=== PATIENT | male | born 1960 | race African-American/Black ===

== ENCOUNTER 2018-02-24 10:20 | Inpatient (IN) | payer OTHER ==
[~2018-02-24] VITALS: Ht 182.9 cm; Wt 113.4 kg
[2018-02-24] MEDS ORDERED: Morphine Sulfate 4mg/ml Inj IVP ONE (10:30)
--- NOTE | 2018-02-24 10:59 | Emergency Room Report ---
History of Present Illness General Chief Complaint: Male Urogenital Problems Source: Patient, EMS Present Illness HPI 57-year-old male presents ED for evaluation. Patient brought in by EMS complaining of scrotal pain and 3 days. Patient states over the last 3 days his scrotum got progressively more swollen. Pain is 8 out of 10, throbbing, nonradiating. Denies dysuria. Denies discharge. Patient notes history of bilateral leg cellulitis. Denies fevers or chills. No other aggravating relieving factors. Denies any other associated symptoms Allergies: Coded Allergies: No Known Allergies (Unverified , 02/24/18) Patient History Past Medical History: DM, HTN, psych hx Past Surgical History: none Pertinent Family History: none Social History: Denies: smoking, alcohol use, drug use Immunizations: UTD Reviewed Nursing Documentation: PMH: Agreed; PSxH: Agreed Nursing Documentation-PMH Past Medical History: No History, Except For Hx Hypertension: Yes Hx Diabetes: Yes History Of Psychiatric Problem: Yes - schizophrenia, ptsd Review of Systems All Other Systems: negative except mentioned in HPI Physical Exam Vital Signs Date Time Temp Pulse Resp B/P (MAP) Pulse Ox O2 Delivery O2 Flow Rate FiO2 02/24/18 10:14 97.5 108 20 182/126 99 Room Air 97.5 Sp02 EP Interpretation: reviewed, normal General Appearance: no apparent distress, alert, GCS 15, non-toxic Head: normocephalic Eyes: bilateral eye normal inspection, bilateral eye PERRL ENT: normal ENT inspection Neck: normal inspection Respiratory: chest non-tender, lungs clear, normal breath sounds, speaking full sentences Cardiovascular #1: regular rate, rhythm, no edema Gastrointestinal: normal bowel sounds, non tender, soft, non-distended, no guarding, no rebound Genitourinary: no CVA tenderness, other - scrotum swollen, erythematous, indurated Musculoskeletal: normal inspection Neurologic: alert, oriented x3, responsive, motor strength/tone normal, sensory intact, speech normal Psychiatric: normal inspection Skin: normal inspection Lymphatic: normal inspection Medical Decision Making Diagnostic Impression: Primary Impression: Cellulitis of scrotum Additional Impression: Uncontrolled hypertension ER Course Hospital Course 57-year-old male presents to ED with scrotal swelling and pain Differential diagnosis includes- torsion, hydrocele, fourniers gangrene, cellultitis Clinical course Patient placed on stretcher. After initial history and physical I ordered labs , IV fluids, pain medications and CT scan and US Labs - noted leukocytosis, Cr 1.9, lactate ok, Scrotal US - thickened scrotum wall, no fluid, no free air, testes within normal limits CT scan shows extensive subcutaneous edema of the scrotum, lower abdomen and bilateral thighs Suspicion for acute process such as fourniers, abscess is low. IV hydration given. Given Zosyn, vancomycin. Blood pressure elevated, tachycardic. States he is not compliant with his blood pressure meds. Does not know the name of his blood pressure meds. Given hydralazine here Patient evaluated by surgery, urology at bedside. Agreed that no acute surgical intervention required at this time Because of insurance patient will be transferred I feel this is a highly complex case requiring extensive working including EKG/ Rhythm strip, Xray/CT/US, Blood/urine lab work, repeat exams while in ED, and administration of strong opiates/narcotics for pain control, admission to hospital or close patient follow up. Diagnosis - cellulitis of scrotum, uncontrolled hypertension transferred in serious condition Labs Test 02/24/18 10:50 White Blood Count 14.1 K/UL (4.8-10.8) Red Blood Count 5.37 M/UL (4.70-6.10) Hemoglobin 14.7 G/DL (14.2-18.0) Hematocrit 47.7 % (42.0-52.0) Mean Corpuscular Volume 89 FL (80-99) Mean Corpuscular Hemoglobin 27.4 PG (27.0-31.0) Mean Corpuscular Hemoglobin Concent 30.8 G/DL (32.0-36.0) Red Cell Distribution Width 14.5 % (11.6-14.8) Platelet Count 310 K/UL (150-450) Mean Platelet Volume 6.3 FL (6.5-10.1) Neutrophils (%) (Auto) 77.4 % (45.0-75.0) Lymphocytes (%) (Auto) 11.8 % (20.0-45.0) Monocytes (%) (Auto) 8.9 % (1.0-10.0) Eosinophils (%) (Auto) 1.2 % (0.0-3.0) Basophils (%) (Auto) 0.8 % (0.0-2.0) Prothrombin Time 12.1 SEC (9.30-11.50) Prothromb Time International Ratio 1.2 (0.9-1.1) Activated Partial Thromboplast Time 29 SEC (23-33) Sodium Level 140 MMOL/L (136-145) Potassium Level 3.7 MMOL/L (3.5-5.1) Chloride Level 101 MMOL/L (98-107) Carbon Dioxide Level 33 MMOL/L (21-32) Anion Gap 6 mmol/L (5-15) Blood Urea Nitrogen 23 mg/dL (7-18) Creatinine 1.9 MG/DL (0.55-1.30) Estimat Glomerular Filtration Rate 44.8 mL/min (>60) Glucose Level 133 MG/DL (74-106) Lactic Acid Level 1.10 mmol/L (0.66-2.22) Calcium Level 8.3 MG/DL (8.5-10.1) Total Bilirubin 0.8 MG/DL (0.2-1.0) Aspartate Amino Transf (AST/SGOT) 25 U/L (15-37) Alanine Aminotransferase (ALT/SGPT) 24 U/L (12-78) Alkaline Phosphatase 123 U/L (46-116) Total Protein 6.8 G/DL (6.4-8.2) Albumin 2.5 G/DL (3.4-5.0) Globulin 4.3 g/dL Albumin/Globulin Ratio 0.6 (1.0-2.7) CT/MRI/US Diagnostic Results CT/MRI/US Diagnostic Results #1: Imaging Test Ordered: CT A/P Impression massive scrotal wall edema. edema of abdominal wall subcutaneous fat, bilateral upper thigh subcutaneous fat CT/MRI/US Diagnostic Results #2: Imaging Test Ordered: Scrotal US Impression thickened scrotum. no free air. no fluid. testes within normal limits. good flow Last Vital Signs Date Time Temp Pulse Resp B/P (MAP) Pulse Ox O2 Delivery O2 Flow Rate FiO2 02/24/18 10:14 97.5 108 20 182/126 99 Room Air 97.5 Status: improved Disposition: XFER SHT-TRM HOSP Condition: Serious SHIMON SALEH M.D. Feb 24, 2018 10:59
[2018-02-24 11:08] LABS: BASOPHILS % (AUTO) 0.8 % (0.0-2.0); EOSINOPHILS % (AUTO) 1.2 % (0.0-3.0); HEMATOCRIT 47.7 % (42.0-52.0); HEMOGLOBIN 14.7 G/DL (14.2-18.0); LYMPHOCYTES % (AUTO) 11.8 % (20.0-45.0); MEAN CORPUSCULAR VOLUME 89 FL (80-99); MONOCYTES % (AUTO) 8.9 % (1.0-10.0); NEUTROPHILS % (AUTO) 77.4 % (45.0-75.0); PLATELET COUNT 310 K/UL (150-450); RED BLOOD COUNT 5.37 M/UL (4.70-6.10); RED CELL DISTRIBUTION WIDTH 14.5 % (11.6-14.8); WHITE BLOOD COUNT 14.1 K/UL (4.8-10.8)
[2018-02-24 11:15] LABS: INR 1.2 (0.9-1.1)
[2018-02-24 11:20] LABS: ANION GAP 6 mmol/L (5-15); BLOOD UREA NITROGEN 23 mg/dL (7-18); CALCIUM 8.3 MG/DL (8.5-10.1); CARBON DIOXIDE 33 MMOL/L (21-32); CHLORIDE 101 MMOL/L (98-107); CREATININE 1.9 MG/DL (0.55-1.30); POTASSIUM 3.7 MMOL/L (3.5-5.1); SODIUM 140 MMOL/L (136-145)
[2018-02-24 11:23] LABS: ALANINE AMINOTRANSFERASE 24 U/L (12-78); ALBUMIN 2.5 G/DL (3.4-5.0); ALBUMIN/GLOBULIN RATIO 0.6 (1.0-2.7); ALKALINE PHOSPHATASE 123 U/L (46-116); ASPARTATE AMINO TRANSFERASE 25 U/L (15-37); BILIRUBIN,TOTAL 0.8 MG/DL (0.2-1.0)
[2018-02-24 12:00] VITALS: BP 151/110
[2018-02-24] MEDS ORDERED: Zosyn 3.375gm inj ONE (12:14)
[2018-02-24] MEDS ORDERED: Piperacillin/Tazobactam 3.375 GM in NS 110 ML IVPB ONE ×2 (12:15→20:00)
[2018-02-24] MEDS ORDERED: Vancomycin 1.5gm/D5W 250ml 250 ML IVPB ONE (12:15)
[2018-02-24] MEDS ORDERED: HYDROmorphone 1mg/ml Carpuject IVP ONE (12:45)
--- NOTE | 2018-02-24 12:46 | Consultation ---
History of Present Illness General Date patient seen: Feb 24, 2018 Time patient seen: 12:42 Chief Complaint: Male Urogenital Problems Referring physician: Jennifer Reason for Consultation: scrotal swelling Present Illness HPI 57 yo male, pre-diabetic, hypertensive, normally [facility] with 3 days scrotal swelling. It is tender as well. Denies any other real symptoms of dysuria, hematuria, or anything else. Unsure of patient's reliability as a historian. Allergies: Coded Allergies: No Known Allergies (Unverified , 02/24/18) Patient History History Provided By: Patient Healthcare decision maker Resuscitation status Advanced Directive on File Review of Systems All Other Systems: negative except mentioned in HPI Physical Exam General Appearance: mild distress Neck: supple Abdomen: soft Genitourinary/Rectal: other - enlarged scrotum bilaterally, no crepitus, mild TTP, no fluctuance or obvious fluid collection Neurologic: alert, oriented x 3 Last 24 Hour Vital Signs Date Time Temp Pulse Resp B/P (MAP) Pulse Ox O2 Delivery O2 Flow Rate FiO2 02/24/18 12:25 97.5 02/24/18 11:14 97.5 02/24/18 10:14 97.5 108 20 182/126 99 Room Air 97.5 Laboratory Tests Test 02/24/18 10:50 White Blood Count 14.1 K/UL (4.8-10.8) H Red Blood Count 5.37 M/UL (4.70-6.10) Hemoglobin 14.7 G/DL (14.2-18.0) Hematocrit 47.7 % (42.0-52.0) Mean Corpuscular Volume 89 FL (80-99) Mean Corpuscular Hemoglobin 27.4 PG (27.0-31.0) Mean Corpuscular Hemoglobin Concent 30.8 G/DL (32.0-36.0) L Red Cell Distribution Width 14.5 % (11.6-14.8) Platelet Count 310 K/UL (150-450) Mean Platelet Volume 6.3 FL (6.5-10.1) L Neutrophils (%) (Auto) 77.4 % (45.0-75.0) H Lymphocytes (%) (Auto) 11.8 % (20.0-45.0) L Monocytes (%) (Auto) 8.9 % (1.0-10.0) Eosinophils (%) (Auto) 1.2 % (0.0-3.0) Basophils (%) (Auto) 0.8 % (0.0-2.0) Prothrombin Time 12.1 SEC (9.30-11.50) H Prothromb Time International Ratio 1.2 (0.9-1.1) H Activated Partial Thromboplast Time 29 SEC (23-33) Sodium Level 140 MMOL/L (136-145) Potassium Level 3.7 MMOL/L (3.5-5.1) Chloride Level 101 MMOL/L (98-107) Carbon Dioxide Level 33 MMOL/L (21-32) H Anion Gap 6 mmol/L (5-15) Blood Urea Nitrogen 23 mg/dL (7-18) H Creatinine 1.9 MG/DL (0.55-1.30) H Estimat Glomerular Filtration Rate 44.8 mL/min (>60) Glucose Level 133 MG/DL (74-106) H Lactic Acid Level 1.10 mmol/L (0.66-2.22) Calcium Level 8.3 MG/DL (8.5-10.1) L Total Bilirubin 0.8 MG/DL (0.2-1.0) Aspartate Amino Transf (AST/SGOT) 25 U/L (15-37) Alanine Aminotransferase (ALT/SGPT) 24 U/L (12-78) Alkaline Phosphatase 123 U/L (46-116) H Total Protein 6.8 G/DL (6.4-8.2) Albumin 2.5 G/DL (3.4-5.0) L Globulin 4.3 g/dL Albumin/Globulin Ratio 0.6 (1.0-2.7) L Height (Feet): 6 Weight (Pounds): 250 Medications Current Medications Medications (Trade) Dose Ordered Sig/Igro Route PRN Reason Start Time Stop Time Status Last Admin Dose Admin Piperacillin Sod/ Tazobactam Sod 3.375 gm/Sodium Chloride 110 ml @ 220 mls/hr ONCE ONCE IVPB 02/24/18 12:15 02/24/18 12:44 02/24/18 12:17 Sodium Chloride 1,000 ml @ 999 mls/hr Q1H1M ONCE IV 02/24/18 12:15 02/24/18 13:15 Vancomycin HCl/ Dextrose 250 ml @ 125 mls/hr ONCE ONCE IVPB 02/24/18 12:15 02/24/18 14:14 Objective Narrative ultrasound: scrotal wall thickening CT: prelim read, skin thickening of scrotal wall, no defined fluid collection, no subcutaneous gas Assessment/Plan Status: stable Assessment/Plan 57 yo male with what seems to be a severe localized cellulitis. Doubt it has just occured over 3 days, but thankfully imaging shows no abscess or involvement of fascial planes. Will await radiology read as well but do not feel he warrants any aggressive surgical drainage at this time. Will monitor. Recommend IV abx treatment for cellulitis. 1. IV abx 2. no intervention. Ulysses Alvarez M.D. Feb 24, 2018 12:46
--- NOTE | 2018-02-24 12:58 | Diagnostic Imaging Report ---
Indication: Abdominal pain Technique: Spiral acquisitions obtained through the abdomen and pelvis. No oral contrast utilized, per emergency room physician request No IV contrast utilized, due to history of renal insufficiency.. Multiplanar reconstructions were generated. Total dose length product 3026.35 mGycm. CTDIvol(s) 41.87 mGy. Dose reduction achieved using automated exposure control Comparison: None Findings: There is generalized edema of the abdominal wall subcutaneous fat. This extends into the chest bansal bilaterally There is also mild edema of the subcutaneous fat of the bilateral upper thighs. There is a massive edema of the scrotal wall. Recent ultrasound indicates that this is not a hydrocele but rather represents scrotal wall thickening Lack of enteric contrast limits assessment of the GI tract. No evidence of diverticulosis or diverticulitis. The appendix is normal. One or more equivocally mildly dilated and thick-walled small bowel loops are seen involving the proximal jejunum. The remainder of the small bowel is normal in caliber. No free or loculated intraperitoneal gas. There is trace intraperitoneal fluid over the right side of the liver. There is a small fat-containing umbilical hernia. Lack of IV contrast limits assessment of the solid organs. The gallbladder demonstrates questionably a small gallbladder neck stone. It is not distended or thick-walled. The liver, bile ducts, pancreas, spleen, adrenals are grossly unremarkable. The kidneys demonstrate perinephric fat stranding bilaterally. No gross mass or cyst. No renal or ureteral calculi, hydronephrosis, or hydroureter demonstrated. Prominent but not frankly enlarged retroperitoneal nodes are demonstrated. Unremarkable prostate, seminal vesicles, and bladder. Linear and groundglass opacities of both lung bases likely represent atelectatic changes. The heart is enlarged. The bones are unremarkable. Impression: Massive scrotal wall edema, appears nonspecific as regards etiology Less extensive edema of the abdominal wall subcutaneous fat and bilateral upper thigh subcutaneous fat Limited assessment of the GI tract, given lack of enteric contrast administration Equivocally minimally dilated and thick walled proximal small bowel loops, of doubtful significance but could represent a mild focal ileus Trace free fluid seen adjacent to the liver Bilateral nonspecific perirenal fat stranding Very questionable cholelithiasis Cardiomegaly Incidental findings small fat-containing umbilical hernia, bilateral basilar atelectatic changes The CT scanner at [facility] is accredited by the [employer] and the scans are performed using protocols designed to limit radiation exposure to as low as reasonably achievable to attain images of sufficient resolution adequate for diagnostic evaluation.
[2018-02-24 13:15] VITALS: BP 151/110
[2018-02-24] MEDS ORDERED: UNOBMED (13:15)
[2018-02-24] MEDS ORDERED: RISPERDAL0.25 MG ORAL (13:15)
--- NOTE | 2018-02-24 14:02 | Diagnostic Imaging Report ---
Indications: Scrotal swelling and pain x3 days Technique: Grayscale and duplex images of the scrotum Comparison: none Findings: The scrotal wall is massively thickened. There is also hypervascular. No discrete scrotal wall collections are demonstrated The right testicle measures 5.3cm in length. It demonstrates normal echogenicity. Normal Doppler flow. There is a 4 mm cyst in the right epididymal head. There is a trace hydrocele. The left testicle measures is 5.1 cm in length. It demonstrates normal echogenicity and normal Doppler flow. Epididymal head and body appears somewhat enlarged. There is a trace left hydrocele Impression: Massive scrotal wall thickening. This may represent edema hemodynamic origin, versus cellulitis. No evidence of scrotal wall abscess Large left epididymal head. This could indicate epididymitis Trace bilateral hydroceles Incidental finding of 4 mm cyst in the right epididymal head, most likely a spermatocele or an epididymal cyst
--- NOTE | 2018-02-24 15:26 | Consultation ---
History of Present Illness General Date patient seen: Feb 24, 2018 Time patient seen: 15:12 Chief Complaint: Male Urogenital Problems Referring physician: Jennifer Reason for Consultation: scrotal swelling Present Illness HPI 57 y /o M with hx of pre-diabetes, schizophrenia, PTSD, [facility], HTN, b/l leg cellulitis presents to ED on 02/24 with 3 days of scrotal swelling and 8/10 pain. Grazyna dysuria, hematuria, discharge, f/c. sexually active with 2 differnet partners- endorse 100% condom use of note , admitted ~2 weeks ago to [facility] for 1 week for leg cellultitis- sent home off abx Allergies: Coded Allergies: No Known Allergies (Unverified , 02/24/18) Medication History Scheduled Risperidone* (Risperdal*), Unknown Dose ORAL DAILY, (Reported) Miscellaneous Medications Unable to Obtain Medications (Unable To Obtain Meds), (Reported) Patient History Healthcare decision maker Resuscitation status Advanced Directive on File Patient History Narrative Pmhx: as above Shx: Denies: smoking, alcohol use, drug usef Fhx: non contributory Review of Systems All Other Systems: negative except mentioned in HPI Physical Exam Physical Exam Narrative General Appearance: no apparent distress, alert Head: normocephalic Eyes: bilateral eye normal inspection, bilateral eye PERRL ENT: normal ENT inspection Neck: normal inspection Respiratory: chest non-tender, lungs clear, normal breath sounds, speaking full sentences Cardiovascular regular rate, rhythm, no edema Gastrointestinal: normal bowel sounds, non tender, soft, non-distended, no guarding, no rebound Genitourinary: no CVA tenderness, other - scrotum swollen, erythematous, indurated Musculoskeletal: normal inspection Skin: normal inspection Last 24 Hour Vital Signs Date Time Temp Pulse Resp B/P (MAP) Pulse Ox O2 Delivery O2 Flow Rate FiO2 02/24/18 13:15 99 17 151/110 99 Room Air 02/24/18 12:49 164/111 02/24/18 12:49 97.5 02/24/18 12:25 97.5 02/24/18 12:00 106 24 151/110 97 Room Air 02/24/18 11:14 97.5 02/24/18 10:14 97.5 108 20 182/126 99 Room Air 97.5 Laboratory Tests Test 02/24/18 10:50 White Blood Count 14.1 K/UL (4.8-10.8) H Red Blood Count 5.37 M/UL (4.70-6.10) Hemoglobin 14.7 G/DL (14.2-18.0) Hematocrit 47.7 % (42.0-52.0) Mean Corpuscular Volume 89 FL (80-99) Mean Corpuscular Hemoglobin 27.4 PG (27.0-31.0) Mean Corpuscular Hemoglobin Concent 30.8 G/DL (32.0-36.0) L Red Cell Distribution Width 14.5 % (11.6-14.8) Platelet Count 310 K/UL (150-450) Mean Platelet Volume 6.3 FL (6.5-10.1) L Neutrophils (%) (Auto) 77.4 % (45.0-75.0) H Lymphocytes (%) (Auto) 11.8 % (20.0-45.0) L Monocytes (%) (Auto) 8.9 % (1.0-10.0) Eosinophils (%) (Auto) 1.2 % (0.0-3.0) Basophils (%) (Auto) 0.8 % (0.0-2.0) Prothrombin Time 12.1 SEC (9.30-11.50) H Prothromb Time International Ratio 1.2 (0.9-1.1) H Activated Partial Thromboplast Time 29 SEC (23-33) Sodium Level 140 MMOL/L (136-145) Potassium Level 3.7 MMOL/L (3.5-5.1) Chloride Level 101 MMOL/L (98-107) Carbon Dioxide Level 33 MMOL/L (21-32) H Anion Gap 6 mmol/L (5-15) Blood Urea Nitrogen 23 mg/dL (7-18) H Creatinine 1.9 MG/DL (0.55-1.30) H Estimat Glomerular Filtration Rate 44.8 mL/min (>60) Glucose Level 133 MG/DL (74-106) H Lactic Acid Level 1.10 mmol/L (0.66-2.22) Calcium Level 8.3 MG/DL (8.5-10.1) L Total Bilirubin 0.8 MG/DL (0.2-1.0) Aspartate Amino Transf (AST/SGOT) 25 U/L (15-37) Alanine Aminotransferase (ALT/SGPT) 24 U/L (12-78) Alkaline Phosphatase 123 U/L (46-116) H Total Protein 6.8 G/DL (6.4-8.2) Albumin 2.5 G/DL (3.4-5.0) L Globulin 4.3 g/dL Albumin/Globulin Ratio 0.6 (1.0-2.7) L Height (Feet): 6 Weight (Pounds): 250 Assessment/Plan Assessment/Plan Abx: IV Vanco/Zosyn 02/24- Assessment: Testicular swelling-> testicular cellulitis and epididymitis; no signs suggestive of Richard gangrene at this moment -Testicular US: Massive scrotal wall thickening. This may represent edema hemodynamic origin, versus cellulitis. No evidence of scrotal wall abscess. Large left epididymal head. This could indicate epididymitis. Trace bilateral hydroceles. Incidental finding of 4 mm cyst in the right epididymal head, most likely a spermatocele or an epididymal cyst -CT abd/p: Massive scrotal wall edema, appears nonspecific as regards etiology. Less extensive edema of the abdominal wall subcutaneous fat and bilateral upper thigh subcutaneous fat. Limited assessment of the GI tract, given lack of enteric contrast administration. Equivocally minimally dilated and thick walled proximal small bowel loops, of doubtful significance but could represent a mild focal ileus. Trace free fluid seen adjacent to the liver. Bilateral nonspecific perirenal fat stranding. Very questionable cholelithiasis. Cardiomegaly ncidental findings small fat-containing umbilical hernia, bilateral basilar atelectatic changes -u/a p Leukocytosis -afebrile pre-diabetes schizophrenia PTSD HTN hx b/l leg cellulitis Plan: -Continue empiric IV Vanco and Zosyn -f/u u/a w/ reflex -HIV ab, GC/CL urine,RPR -f/u cx -Monitor CBC, BMP, temperatures Thank you for this consultation. Will continue to follow along with you. Discussed with RN, Leela Christian M.D. Feb 24, 2018 15:25
[2018-02-24 15:27] LABS: APPEARANCE,URINE CLEAR; BILIRUBIN, URINE NEGATIVE (NEGATIVE); GLUCOSE, URINE (UA) NEGATIVE (NEGATIVE); KETONES,URINE NEGATIVE (NEGATIVE); LEUKOCYTE ESTERASE ,URINE 1+ (NEGATIVE); NITRITE,URINE NEGATIVE (NEGATIVE); PH,URINE 5 (4.5-8.0); PROTEIN,URINE 4+ (NEGATIVE); UROBILINOGEN,URINE 4 MG/DL (0.0-1.0)
[2018-02-24 15:28] VITALS: BP 138/84
[2018-02-24 15:31] LABS: COLOR,URINE YELLOW
[2018-02-24 16:23] VITALS: BP 138/84
[2018-02-24] MEDS ORDERED: cloNIDine 0.2mg Tab ORAL PRN (16:30)
[2018-02-24] MEDS ORDERED: HYDROcodone/Acetamin 10/325 tab ORAL PRN (16:30)
--- NOTE | 2018-02-24 18:04 | Discharge Summary ---
Discharge Summary Hospital Course Date of Admission Feb 24, 2018 at 15:07 Date of Discharge Feb 24, 2018 at 16:58 Admitting Diagnosis scorotal cellulitis HPI Jesus Mcclendon is a 57 year old male who was admitted on Feb 24, 2018 at 15:07 for Scrotal Cellulitis Hospital Course [id number] Discharge Discharge Disposition Patient was discharged to Acute Care Facility(02) Ashley Jensen NP Feb 24, 2018 18:04
[2018-02-24] MEDS ORDERED: Ampicillin/Sulbactam Sod 1.5 GM in NS 55 ML IVPB SCH (21:00)
[2018-02-24] MEDS ORDERED: Heparin 5000 units/ml inj SUBQ SCH (21:00)
[2018-02-24] MEDS ORDERED: Metoprolol 25mg tab ORAL SCH (21:00)
--- NOTE | 2018-02-25 08:00 | Discharge Summary 2 SIG ---
DATE OF ADMISSION: 02/24/2018 DATE OF DISCHARGE: 02/24/2018 BRIEF HOSPITAL COURSE: The patient is a 57-year-old male, who presented to ED, brought in by EMS complaining of scrotal pain for three days. This has progressively gotten more painful and swollen. The pain is 8/10, throbbing, and nonradiating. He denied dysuria. Denied discharge. He has history of bilateral leg cellulitis. He denied fever or chills. He has past medical history significant for diabetes mellitus and hypertension. On evaluation at ED, WBC was elevated to 14, creatinine was elevated to 1.9. Testicular ultrasound showed massive scrotal wall thickening, which may represent edema versus cellulitis. There was no evidence of scrotal wall abscess. There was a large left epididymal head, which could indicate epididymitis and an incidental finding of a 4-mm cyst in the right epididymal head, most likely spermatocele or epididymal cyst. He was admitted to medical floor and underwent urological evaluation. No abscess seen and recommended IV antibiotics. He was seen by Infectious Disease specialist. The patient had been sexually active with two different partners, but endorsed condom use 100%. He was recently admitted to the hospital for leg cellulitis and has been sent home, off antibiotic. He was started on IV vancomycin and Zosyn and was eventually transferred to a contracted hospital. FINAL DIAGNOSES: 1. Testicular swelling, possible testicular cellulitis and epididymitis. There was no sign suggestive of Richard gangrene. 2. Prediabetes. 3. Schizophrenia. 4. Posttraumatic stress disorder. 5. Hypertension. 6. History of bilateral leg cellulitis. DISPOSITION: The patient was discharged to a contracted hospital. Ovi Casillas M.D. I have been assigned to dictate discharge summary on this account and I was not involved in the patient's management. Ashley Jensen N.P. DR: QUINCY JOB#: [id number] CC:
[2018-02-25] MEDS ORDERED: Pantoprazole Inj IVP SCH (09:00)
== END 2018-02-24 16:58 | disposition short-term general hospital (02) | DRG 501 ==
LOC: EDBD 10:20 → CANBEDREQ 10:45 → EMR 11:05 → EDBEDREQ 14:42 → 4E 15:07
DX: N45.1 Epididymitis (principal); F20.9 Schizophrenia, unspecified; I10 Essential (primary) hypertension; N49.2 Inflammatory disorders of scrotum; F43.10 Post-traumatic stress disorder, unspecified; R73.03 Prediabetes
CPT/HCPCS: 36415; 74176; 76870; 80053; 81003; 82962; 83605; 85025; 85610; 85730; 86850; 86900; 86901; 87040; 99285

== ENCOUNTER 2019-06-11 13:32 | Inpatient (IN) | payer OTHER ==
[~2019-06-11] VITALS: Ht 177.8 cm; Wt 127.0 kg
[~2019-06-11 13:32] MED LIST: RISPERDAL0.25 MG ORAL; UNOBMED
--- NOTE | 2019-06-11 13:43 | Emergency Room Report ---
History of Present Illness General Chief Complaint: Seizure Source: EMS Present Illness HPI 59-year-old male, limited past medical history secondary to patient's condition , possible history of seizure, polysubstance abuse, patient had a in unwitnessed seizure at home, with trauma to the mouth, patient was found down, history is limited, patient found with multiple drug paraphernalia Allergies: Coded Allergies: No Known Allergies (Unverified , 02/24/18) Patient History Limited by: medical condition - Altered Mental status Social History: Reports: smoking, alcohol use, drug use Reviewed Nursing Documentation: PMH: Agreed; PSxH: Agreed Nursing Documentation-PMH Past Medical History Deferred: Patient Unconscious Hx Hypertension: Yes Hx Diabetes: Yes Hx Cancer: No Hx Gastrointestinal Problems: No Hx Neurological Problems: No Review of Systems All Other Systems: limited - Altered mental status Physical Exam Vital Signs Date Time Temp Pulse Resp B/P (MAP) Pulse Ox O2 Delivery O2 Flow Rate FiO2 06/11/19 13:25 98.1 117 22 221/113 (149) 94 Room Air Sp02 EP Interpretation: reviewed, abnormal - SaO2 reading reduced General Appearance: moderate distress, Postictal Head: normocephalic, atraumatic Eyes: bilateral eye PERRL, bilateral eye EOMI ENT: uvula midline, moist mucus membranes, other - Tongue trauma, bite monsivais Neck: supple, thyroid normal, supple/symm/no masses Respiratory: lungs clear, no respiratory distress, no retraction, no accessory muscle use Cardiovascular #1: normal peripheral pulses, no edema, no gallop, no murmur, tachycardia Gastrointestinal: non tender, soft, no guarding, no rebound Musculoskeletal: normal inspection Neurologic: other - confused, moving all 4 extremities, attempts to remove mask on his face Skin: no rash, warm/dry Medical Decision Making Diagnostic Impression: Primary Impression: Seizure Additional Impressions: Altered mental state Hypoxia FELIX (acute kidney injury) Elevated troponin ER Course Patient presents with acute altered mental status possible drug use, possible seizure, will obtain labs, EKG, and reevaluate. Evaluation 2:35 PM, patient back at baseline, patient does endorse using drugs, patient with an elevated troponin, most likely to demand ischemia secondary to tachycardia, patient with an FELIX, fluid rehydration was given, With no crackles on exam however patient with bilateral haziness on chest x-ray , concerning for developing pulmonary edema Patient will be admitted for observation, rehydration, fluid resuscitation, patient with newfound acute kidney injury, most likely secondary to drugs Pt also covered with ceftriaxone and azithromycin for possible pneumonia, blood cultures will be drawn Will be admitted to stepdown unit Signed out to Dr. Rich at 3:13 PM Laboratory Tests Test 06/11/19 14:00 06/11/19 14:03 Venous Blood pH 7.068 Venous Blood Partial Pressure CO2 55.2 Venous Blood Partial Pressure O2 94.4 Venous Blood HCO3 15.6 Venous Blood Total Carbon Dioxide 55.2 Venous Bld O2 Saturation (Measured) Pending Venous Blood Oxygen Saturation 94.6 Venous Blood Base Excess -15.1 Methemoglobin 0.5 Sodium (Blood Gas) Pending White Blood Count 17.1 K/UL (4.8-10.8) H Red Blood Count 5.54 M/UL (4.70-6.10) Hemoglobin 15.8 G/DL (14.2-18.0) Hematocrit 49.2 % (42.0-52.0) Mean Corpuscular Volume 89 FL (80-99) Mean Corpuscular Hemoglobin 28.4 PG (27.0-31.0) Mean Corpuscular Hemoglobin Concent 32.0 G/DL (32.0-36.0) Red Cell Distribution Width 13.8 % (11.6-14.8) Platelet Count 248 K/UL (150-450) Mean Platelet Volume 6.7 FL (6.5-10.1) Neutrophils (%) (Auto) % (45.0-75.0) Lymphocytes (%) (Auto) % (20.0-45.0) Monocytes (%) (Auto) % (1.0-10.0) Eosinophils (%) (Auto) % (0.0-3.0) Basophils (%) (Auto) % (0.0-2.0) Differential Total Cells Counted 100 Neutrophils % (Manual) 93 % (45-75) H Lymphocytes % (Manual) 4 % (20-45) L Monocytes % (Manual) 3 % (1-10) Eosinophils % (Manual) 0 % (0-3) Basophils % (Manual) 0 % (0-2) Band Neutrophils 0 % (0-8) Platelet Estimate Adequate Platelet Morphology Normal Red Blood Cell Morphology Normal Urine Color Pale yellow Urine Appearance Slightly cloudy Urine pH 5 (4.5-8.0) Urine Specific [place] 1.020 (1.005-1.035) Urine Protein 4+ (NEGATIVE) H Urine Glucose (UA) 4+ (NEGATIVE) H Urine Ketones Negative (NEGATIVE) Urine Blood 4+ (NEGATIVE) H Urine Nitrite Negative (NEGATIVE) Urine Bilirubin Negative (NEGATIVE) Urine Urobilinogen Normal MG/DL (0.0-1.0) Urine Leukocyte Esterase Negative (NEGATIVE) Urine RBC 10-15 /HPF (0 - 0) H Urine WBC 0-2 /HPF (0 - 0) Urine Squamous Epithelial Cells Few /LPF (NONE/OCC) Urine Bacteria Few /HPF (NONE) Urine Sperm Few /LPF (NONE) Sodium Level 133 MMOL/L (136-145) L Potassium Level 3.6 MMOL/L (3.5-5.1) Chloride Level 101 MMOL/L (98-107) Carbon Dioxide Level 22 MMOL/L (21-32) Anion Gap 11 mmol/L (5-15) Blood Urea Nitrogen 37 mg/dL (7-18) H Creatinine 2.8 MG/DL (0.55-1.30) H Estimate Glomerular Filtration Rate 28.5 mL/min (>60) Glucose Level 581 MG/DL (74-106) *H Calcium Level 8.8 MG/DL (8.5-10.1) Magnesium Level 2.2 MG/DL (1.8-2.4) Total Bilirubin 0.4 MG/DL (0.2-1.0) Aspartate Amino Transferase (AST) 17 U/L (15-37) Alanine Aminotransferase (ALT) 14 U/L (12-78) Alkaline Phosphatase 191 U/L (46-116) H Total Creatine Kinase 246 U/L (26-308) Creatine Kinase MB 3.3 NG/ML (0.0-3.6) Creatine Kinase MB Relative Index 1.3 Troponin I 0.156 ng/mL (0.000-0.056) Total Protein 7.1 G/DL (6.4-8.2) Albumin 2.6 G/DL (3.4-5.0) L Globulin 4.5 g/dL Albumin/Globulin Ratio 0.6 (1.0-2.7) L Lipase 89 U/L (73-393) Salicylates Level 4.6 ug/mL (2.8-20) Urine Opiates Screen Negative (NEGATIVE) Acetaminophen Level Pending Urine Barbiturates Screen Negative (NEGATIVE) Phenytoin (Dilantin) Level < 0.5 ug/mL (10-20) L Valproic Acid Level Pending Carbamazepine (Tegretol) Level < 0.5 ug/mL (4.0-12.0) L Phencyclidine (PCP) Screen Negative (NEGATIVE) Urine Amphetamines Screen Positive (NEGATIVE) H Urine Benzodiazepines Screen Positive (NEGATIVE) H Urine Cocaine Screen Negative (NEGATIVE) Urine Marijuana (THC) Screen Negative (NEGATIVE) Serum Alcohol < 3 mg/dL Acetone Level Negative (NEGATIVE) EKG Diagnostic Results EKG Time: 13:44 EP Interpretation: Sinus tachycardia, right axis deviation, no acute ST elevations Rate: tachycardiac Rhythm: other - Tachycardia ST Segments: no acute changes Rhythm Strip Diag. Results Rhythm Strip Time: 13:43 EP Interpretation: yes Rate: 102 Rhythm: no PVC's, no ectopy, other - sinus tachycardia Other Impression Sinus tachycardia Chest X-Ray Diagnostic Results Chest X-Ray Diagnostic Results : Chest X-Ray Ordered: Yes # of Views/Limited/Complete: 1 View Indication: Other - Altered mental status EP Interpretation: Yes Interpretation: other - biLateral haziness Impression: Other - Pulmonary edema CT/MRI/US Diagnostic Results CT/MRI/US Diagnostic Results : Imaging Test Ordered: CT brain Impression No acute intracranial bleed, mass-effect or edema, Last Vital Signs Date Time Temp Pulse Resp B/P (MAP) Pulse Ox O2 Delivery O2 Flow Rate FiO2 06/11/19 13:25 98.1 117 22 221/113 (149) 94 Room Air Disposition: ADMITTED INPATIENT Condition: Stable Luke Alvarado M.D. Jun 11, 2019 13:43
[2019-06-11 14:20] LABS: APPEARANCE,URINE SLIGHTLY CLOUDY; BILIRUBIN, URINE NEGATIVE (NEGATIVE); COLOR,URINE PALE YELLOW; GLUCOSE, URINE (UA) 4+ (NEGATIVE); HEMATOCRIT 49.2 % (42.0-52.0); HEMOGLOBIN 15.8 G/DL (14.2-18.0); KETONES,URINE NEGATIVE (NEGATIVE); LEUKOCYTE ESTERASE ,URINE NEGATIVE (NEGATIVE); MEAN CORPUSCULAR VOLUME 89 FL (80-99); NITRITE,URINE NEGATIVE (NEGATIVE); PH,URINE 5 (4.5-8.0); PLATELET COUNT 248 K/UL (150-450); PROTEIN,URINE 4+ (NEGATIVE); RED BLOOD COUNT 5.54 M/UL (4.70-6.10); RED CELL DISTRIBUTION WIDTH 13.8 % (11.6-14.8); UROBILINOGEN,URINE NORMAL MG/DL (0.0-1.0); WHITE BLOOD COUNT 17.1 K/UL (4.8-10.8)
[2019-06-11 14:44] LABS: ALANINE AMINOTRANSFERASE 14 U/L (12-78); ALBUMIN 2.6 G/DL (3.4-5.0); ALBUMIN/GLOBULIN RATIO 0.6 (1.0-2.7); ALKALINE PHOSPHATASE 191 U/L (46-116); ANION GAP 11 mmol/L (5-15); ASPARTATE AMINO TRANSFERASE 17 U/L (15-37); BILIRUBIN,TOTAL 0.4 MG/DL (0.2-1.0); BLOOD UREA NITROGEN 37 mg/dL (7-18); CALCIUM 8.8 MG/DL (8.5-10.1); CARBON DIOXIDE 22 MMOL/L (21-32); CHLORIDE 101 MMOL/L (98-107); CKMB 3.3 NG/ML (0.0-3.6); CREATINE KINASE 246 U/L (26-308); CREATININE 2.8 MG/DL (0.55-1.30); POTASSIUM 3.6 MMOL/L (3.5-5.1); SODIUM 133 MMOL/L (136-145)
--- NOTE | 2019-06-11 14:49 | Diagnostic Imaging Report ---
Indication: Altered mental status Technique: Contiguous 5 mm thick transaxial imaging of the head obtained in a Siemens Sensation [address] scanner. Soft tissue and bone windows generated. Automatic Exposure Control was utilized. Total Dose length Product (DLP): 1478.[address] Dose Index Volume (CTDIvol): 70.38 mGy Comparison: none Findings: There is mild prominence of the ventricles, basal cisterns, and cerebral sulci consistent with atrophy. Mild, nonspecific, white matter hypoattenuation is noted throughout the brain consistent with chronic small vessel disease. There is no midline shift, edema, acute hemorrhage, mass effect, or abnormal extra-axial fluid collections. There is depression of the left orbital floor consistent with an old fracture. Impression: No acute intracranial bleed, mass effect or edema. Mild atrophy of the brain. Nonspecific white matter hypoattenuation probably due to chronic small vessel disease. Old left orbital trauma The CT scanner at [facility] is accredited by the [employer] and the scans are performed using dose optimization techniques as appropriate to a performed exam including Automatic Exposure control.
[2019-06-11 15:02] VITALS: BP 104/55
--- NOTE | 2019-06-11 15:05 | Diagnostic Imaging Report ---
Indication: Dyspnea Comparison: None A single view chest radiograph was obtained. Findings: There is enlargement of the cardiac silhouette with pulmonary vascular redistribution and prominence, hazy vessel margins and the suggestion of moderate interstitial edema consistent with CHF. Bones are unremarkable. IMPRESSION: Congestive heart failure
--- NOTE | 2019-06-11 15:12 | NUR ---
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
--- NOTE | 2019-06-11 15:13 | NUR ---
ED Nurse Note: blood urine sent pt is arousable and follows comands vss ivf up infusing . lab called with + trop results and BS 581 ermd and charge informed.
[2019-06-11] MEDS ORDERED: Azithromycin 500 MG in NS 275 ML IV ONE (15:15)
[2019-06-11] MEDS ORDERED: cefTRIAXone 1 GM in NS 55 ML IVPB ONE (15:15)
--- NOTE | 2019-06-11 15:15 | NUR ---
ED Nurse Note: mrsa vre cre swabs done pt positive for benzoz and amphethamines.
--- NOTE | 2019-06-11 15:18 | NUR ---
ED Nurse Note: belongings list done.
[2019-06-11] MEDS ORDERED: Insulin Human Regular 100units/ml 3ml IV ONE (16:00)
[2019-06-11 17:29] VITALS: BP 119/67
--- NOTE | 2019-06-11 19:00 | NUR ---
NURSE NOTES: received patient report from mellisa calvert from ER. patient came in via gurney. patient is responding to questions. AOX2-3. skin is intact. not in acute distress noted. conductor and engineer initiated. under the care of dr churchill. belongings list checked and signed by nas calvert. will follow plan of care.
--- NOTE | 2019-06-11 19:12 | NUR ---
HAND-OFF: Report given to afua calvert.
[2019-06-11 20:00] VITALS: BP 160/106
[2019-06-11] MEDS ORDERED: LORazepam Inj 2mg/ml 1ml IV PRN (20:15)
[2019-06-11] MEDS: D5NS 1,000 ML IV SCH (21:56)
[2019-06-11] MEDS: NovoLOG Insulin Flexpen SUBQ SCH (21:58)
[2019-06-11] MEDS: Heparin 5000 units/ml inj SUBQ SCH (21:59)
[2019-06-11] MEDS ORDERED: Levemir Flexpen SUBQ SCH (22:00)
[2019-06-11] MEDS ORDERED: cefTRIAXone 1gm/D5W 55ml IVPB ONE ×2 (22:00)
--- NOTE | 2019-06-11 22:00 | NUR ---
NURSE NOTES: Patient is able to be aroused by voice and answer simple questions such as his name and address. He did not know where he was but was thinking he was still at [facility]. He states that seizures and diabetes are his only medical history. He is lethargic and doses in and out of sleep. Unable to get anymore information at this time.
[2019-06-12] VITALS: BP 154/97
[2019-06-12 04:00] VITALS: BP 168/114
[2019-06-12] MEDS: NovoLOG Insulin Flexpen SUBQ SCH ×6 (06:08→20:53)
[2019-06-12] MEDS: D5NS 1,000 ML IV SCH (07:02)
--- NOTE | 2019-06-12 07:05 | NUR ---
NURSE NOTES: received patient report from afua calvert. patient is on bed awake. not in acute distress. asking for breakfast. currently patient is NPO. will call dr churchill for diet order. no arrythmias reported during the night. will follow plan of care.
--- NOTE | 2019-06-12 07:06 | NUR ---
HAND-OFF: Report given to LU LUO.
[2019-06-12 08:00] VITALS: BP 104/63
[2019-06-12] MEDS: Heparin 5000 units/ml inj SUBQ SCH ×3 (08:28→20:50)
--- NOTE | 2019-06-12 10:11 | History & Physical ---
History and Physical History & Physicial seen and examined. Full Dictation completed, on 1010 AM Ovi Casillas MD Jun 12, 2019 10:11
--- NOTE | 2019-06-12 10:14 | General Progress Note ---
Assessment/Plan Assessment/Plan: 1- Acute encephalopathy 2- Sz d/o 3- NSTEMI 4- PSA 5- Renal failure 6- CHF exacerbation 7. DM-2 Plan: I will consult Endo Nephro Neuro cardio Critical specialist Subjective Allergies: Coded Allergies: No Known Allergies (Unverified , 02/24/18) Objective Last 24 Hour Vital Signs Date Time Temp Pulse Resp B/P (MAP) Pulse Ox O2 Delivery O2 Flow Rate FiO2 06/12/19 08:00 Nasal Cannula 2.0 06/12/19 08:00 98.1 80 26 104/63 (77) 100 06/12/19 07:44 93 06/12/19 04:00 97.2 87 20 168/114 (132) 96 06/12/19 04:00 Nasal Cannula 2.0 06/12/19 03:37 89 06/12/19 00:00 Nasal Cannula 2.0 06/12/19 00:00 98.0 110 28 154/97 (116) 94 06/11/19 23:40 98 06/11/19 20:00 97.8 101 28 160/106 (124) 94 06/11/19 19:38 89 06/11/19 19:00 Nasal Cannula 2.0 06/11/19 18:15 98.1 92 19 119/67 96 Nasal Cannula 2.0 06/11/19 17:29 98.1 92 19 119/67 96 Nasal Cannula 2.0 06/11/19 15:04 105 26 Nasal Cannula 5.0 06/11/19 15:02 98.1 105 26 104/55 97 Nasal Cannula 5.0 06/11/19 13:25 98.1 117 22 221/113 (149) 94 Room Air Intake and Output 06/11/19 06/12/19 18:59 06:59 Intake Total 120 ml 800 ml Output Total 430 ml 550 ml Balance -310 ml 250 ml Intake Oral 120 ml IV Total 800 ml Output Urine Total 430 ml 550 ml # Voids 1 1 Laboratory Tests 06/11/19 14:00: Venous Blood pH 7.068, Venous Blood Partial Pressure CO2 55.2, Venous Blood Partial Pressure O2 94.4, Venous Blood HCO3 15.6, Venous Blood Total Carbon Dioxide 55.2, Venous Bld O2 Saturation (Measured) [Pending], Venous Blood Oxygen Saturation 94.6, Venous Blood Base Excess -15.1, Methemoglobin 0.5, Sodium (Blood Gas) [Pending] 06/11/19 14:03: White Blood Count 17.1H, Red Blood Count 5.54, Hemoglobin 15.8, Hematocrit 49.2 , Mean Corpuscular Volume 89, Mean Corpuscular Hemoglobin 28.4, Mean Corpuscular Hemoglobin Concent 32.0, Red Cell Distribution Width 13.8, Platelet Count 248, Mean Platelet Volume 6.7, Neutrophils (%) (Auto) , Lymphocytes (%) ( Auto) , Monocytes (%) (Auto) , Eosinophils (%) (Auto) , Basophils (%) (Auto) , Differential Total Cells Counted 100, Neutrophils % (Manual) 93H, Lymphocytes % (Manual) 4L, Monocytes % (Manual) 3, Eosinophils % (Manual) 0, Basophils % ( Manual) 0, Band Neutrophils 0, Platelet Estimate Adequate, Platelet Morphology Normal, Red Blood Cell Morphology Normal, Urine Color Pale yellow, Urine Appearance Slightly cloudy, Urine pH 5, Urine Specific [place] 1.020, Urine Protein 4+H, Urine Glucose (UA) 4+H, Urine Ketones Negative, Urine Blood 4+H, Urine Nitrite Negative, Urine Bilirubin Negative, Urine Urobilinogen Normal, Urine Leukocyte Esterase Negative, Urine RBC 10-15H, Urine WBC 0-2, Urine Squamous Epithelial Cells Few, Urine Bacteria Few, Urine Sperm Few, Sodium Level 133L, Potassium Level 3.6, Chloride Level 101, Carbon Dioxide Level 22, Anion Gap 11, Blood Urea Nitrogen 37H, Creatinine 2.8H, Estimat Glomerular Filtration Rate 28.5, Glucose Level 581*H, Calcium Level 8.8, Magnesium Level 2.2, Total Bilirubin 0.4, Aspartate Amino Transf (AST/SGOT) 17, Alanine Aminotransferase (ALT/SGPT) 14, Alkaline Phosphatase 191H, Total Creatine Kinase 246, Creatine Kinase MB 3.3, Creatine Kinase MB Relative Index 1.3, Troponin I 0.156H, Pro-B-Type Natriuretic Peptide 5115H, Total Protein 7.1, Albumin 2.6L, Globulin 4.5, Albumin/Globulin Ratio 0.6L, Lipase 89, Salicylates Level 4.6, Urine Opiates Screen Negative, Acetaminophen Level < 2L, Urine Barbiturates Screen Negative, Phenytoin (Dilantin) Level < 0.5L, Valproic Acid ( Depakene) Level < 3L, Carbamazepine (Tegretol) Level < 0.5L, Phencyclidine (PCP ) Screen Negative, Urine Amphetamines Screen PositiveH, Urine Benzodiazepines Screen PositiveH, Urine Cocaine Screen Negative, Urine Marijuana (THC) Screen Negative, Serum Alcohol < 3, Acetone Level Negative Height (Feet): 5 Height (Inches): 10.00 Weight (Pounds): 280 Ovi Casillas MD Jun 12, 2019 10:14
--- NOTE | 2019-06-12 10:30 | NUR ---
NURSE NOTES: patient was so agitated. he removed IV line, removed trolley cleaner. patient stated that he wants to go home. patient got upset with the semiconductor lab technician. patient stated that she was telling lies and every body else were telling lies. he demanded to speak with the MD. dr churchill made aware and ordered to call dr villarreal for this. will continue to monitor.
[2019-06-12] MEDS ORDERED: LORazepam 1mg tab ORAL PRN (11:45)
--- NOTE | 2019-06-12 11:46 | NUR ---
NURSE NOTES: dr villarreal made aware of the patients agitation per order by dr churchill. dr villarreal ordered 2mg ativan Q6H. will take note and continue to monitor.
--- NOTE | 2019-06-12 12:37 | NUR ---
NURSE NOTES: left a message to dr churchill regarding this patients no IV access and that ATB IV is scheduled @ 1600. awaits callback and new order.
--- NOTE | 2019-06-12 13:20 | NUR ---
CASE MANAGEMENT: INITIAL REVIEW 59 YO BIBA FROM HOME CC: SZ PMHx: HTN. DM. SI:AMS. SZ. T 98.1 HR 117 RR 22 B/P 221/113 SATS 94% ON RA WBC 17.1 NA 133 BUN 37 CR 2.8 GLU 581 ALP 191 TROPONIN 0.156 BNP 5115 U TOX (+METH AND BENZOS) IS: NS BOLUS X2 CEFTRIAXONE IV X1 AZITHROMYCIN IV X1 INSULIN HUMAN REGULAR 10 UNITS X1 PATIENT ADMITTED TO SDU 06/11/2019 @ 8485 DCP: PATIENT TO BE DISCHARGED TO HOME ONCE MEDICALLY CLEARED. PLAN OF CARE: ENDO AND NEURO CONSULT Addendum: 06/12/19 at 1513 by Sandy Song CM INTERQUAL MET
--- NOTE | 2019-06-12 14:24 | Cardiac Electrophysiology PN ---
Subjective Subjective EP consult dictated. [id number] Objective Last 24 Hour Vital Signs Date Time Temp Pulse Resp B/P (MAP) Pulse Ox O2 Delivery O2 Flow Rate FiO2 06/12/19 12:00 Nasal Cannula 2.0 06/12/19 08:00 Nasal Cannula 2.0 06/12/19 08:00 98.1 80 26 104/63 (77) 100 06/12/19 07:44 93 06/12/19 04:00 97.2 87 20 168/114 (132) 96 06/12/19 04:00 Nasal Cannula 2.0 06/12/19 03:37 89 06/12/19 00:00 Nasal Cannula 2.0 06/12/19 00:00 98.0 110 28 154/97 (116) 94 06/11/19 23:40 98 06/11/19 20:00 97.8 101 28 160/106 (124) 94 06/11/19 19:38 89 06/11/19 19:00 Nasal Cannula 2.0 06/11/19 18:15 98.1 92 19 119/67 96 Nasal Cannula 2.0 06/11/19 17:29 98.1 92 19 11967 96 Nasal Cannula 2.0 06/11/19 15:04 105 26 Nasal Cannula 5.0 06/11/19 15:02 98.1 105 26 104/55 97 Nasal Cannula 5.0 Intake and Output 06/11/19 06/12/19 19:00 07:00 Intake Total 120 ml 800 ml Output Total 430 ml 550 ml Balance -310 ml 250 ml Intake Oral 120 ml IV Total 800 ml Output Urine Total 430 ml 550 ml # Voids 1 1 Marcelo Yao MD Jun 12, 2019 14:24
--- NOTE | 2019-06-12 14:56 | Consultation ---
Consult Note Consult Note asked to eval for renal failure data reviewed 59-year-old male, limited past medical history secondary to patient's condition , possible history of seizure, polysubstance abuse, patient had a in unwitnessed seizure at home, with trauma to the mouth, patient was found down, history is limited, patient found with multiple drug paraphernalia No Known Allergies (Unverified , 02/24/18) Limited by: medical condition - Altered Mental status Social History: Reports: smoking, alcohol use, drug use Reviewed Nursing Documentation: PMH: Agreed; PSxH: Agreed Nursing Documentation-PMH Past Medical History Deferred: Hx Hypertension: Yes Hx Diabetes: Yes Assessment/Plan 1- Acute encephalopathy / Multi drug abuse 2- Sz 3- NSTEMI 4- PSA 5- Renal failure pre renal vs Renal 6- CHF exacerbation 7. DM-2, proteinuria/ Diabetic Nephropathy 2D echo Kidney JYOTSNA Urine studies slow hydrate monitor renal parameters Amor Gonzales MD Jun 12, 2019 14:56
--- NOTE | 2019-06-12 15:32 | Consultation ---
Consult Note Assessment/Plan DICT # [id number] Clint Shea MD Jun 12, 2019 15:31
[2019-06-12] MEDS ORDERED: Azithromycin 500 MG in D5W 275 ML IV SCH (16:00)
[2019-06-12] MEDS ORDERED: Azithromycin 250mg tab ORAL SCH (17:00)
[2019-06-12] MEDS: Docusate 100mg cap ORAL SCH (17:04)
--- NOTE | 2019-06-12 17:08 | Cardiology Progress Note ---
Assessment/Plan Assessment/Plan The patient is seen and examined, full consult note will be dictated. Objective Last 24 Hour Vital Signs Date Time Temp Pulse Resp B/P (MAP) Pulse Ox O2 Delivery O2 Flow Rate FiO2 06/12/19 16:00 Nasal Cannula 3.0 06/12/19 12:00 Nasal Cannula 2.0 06/12/19 08:00 Nasal Cannula 2.0 06/12/19 08:00 98.1 80 26 104/63 (77) 100 06/12/19 07:44 93 06/12/19 04:00 97.2 87 20 168/114 (132) 96 06/12/19 04:00 Nasal Cannula 2.0 06/12/19 03:37 89 06/12/19 00:00 Nasal Cannula 2.0 06/12/19 00:00 98.0 110 28 154/97 (116) 94 06/11/19 23:40 98 06/11/19 20:00 97.8 101 28 160/106 (124) 94 06/11/19 19:38 89 06/11/19 19:00 Nasal Cannula 2.0 06/11/19 18:15 98.1 92 19 119/67 96 Nasal Cannula 2.0 06/11/19 17:29 98.1 92 19 119/67 96 Nasal Cannula 2.0 Intake and Output 06/11/19 06/12/19 19:00 07:00 Intake Total 120 ml 800 ml Output Total 430 ml 550 ml Balance -310 ml 250 ml Intake Oral 120 ml IV Total 800 ml Output Urine Total 430 ml 550 ml # Voids 1 1 Marcelo Guzman MD Jun 12, 2019 17:08
[2019-06-12 17:32] VITALS: BP 212/142
--- NOTE | 2019-06-12 18:30 | History and Physical Report ---
DATE OF ADMISSION: 06/11/2019 HISTORY OF PRESENT ILLNESS: The patient is a 59-year-old male with a history of noncompliance and leaving the hospital AMA. The patient reported that he had left a different hospital recently despite the fact of possibility of seizure. The patient reports he has no recollection about the incident, however, has been told that he has been sent to the hospital. Per emergency room evaluation, the patient had been found on the floor at home with a couple of the medication at the site. Initial evaluation in the emergency room shows the systolic blood pressure more than 200 with a pulse rate of more than 100. Initial blood work shows leukocytosis and a glucose of more than 500 and troponin of 0.15. At the time of evaluation, the patient denies any chest pain. The patient is delirious and poor historian. PAST MEDICAL HISTORY: Seizure disorder, noncompliance with medical advice, congestive heart failure, and diabetes. PAST SURGICAL HISTORY: Denies. HOME MEDICATIONS: Cannot be obtained. ALLERGIES: NKDA. FAMILY HISTORY: Reviewed and noncontributory. SOCIAL HISTORY: The patient lives by himself. Reported he has 2 children, however, they are grown up. Positive for substance abuse. PHYSICAL EXAMINATION: VITAL SIGNS: Blood pressure 200/100, pulse rate 110, respiratory rate 18, temperature 98.2, and pulse oximetry 98% on room air. HEAD AND NECK: Atraumatic and normocephalic. CHEST: Clear to auscultation. HEART: S1, S2. Regular rate and rhythm. ABDOMEN: Soft. No organomegaly. MUSCULOSKELETAL: No gross lateralized motor deficit. NEUROLOGY: The patient is awake and alert x2 to 3. IMAGING: Head CT dated 06/11/2019 is negative for any acute pathology. His chest x-ray dated 06/11/2019 shows congestive heart failure exacerbation. LABORATORY DATA: Labs dated 06/11/2019 shows WBC of 17.1, sodium 133, BUN 37, creatinine 2.8, and glucose of 580. Troponin 0.15. ASSESSMENT: 1. Acute encephalopathy, likely metabolic type. 2. Seizure disorder with history of noncompliance with medication. 3. Congestive heart failure exacerbation. 4. Abnormal troponin. 5. Psychiatric disorder. 6. Noncompliance with medication and history of leaving hospital against medical advice. 7. Leukocytosis, likely secondary to substance abuse. 8. Polysubstance abuse. 9. GI and DVT prophylaxis. 10. Renal failure, age indeterminate. PLAN OF CARE: I will start the diuresis and optimize. We will consult Nephrology. Start the seizure medications and seizure precautions. We will notify Dr. Ybarra. We will consult Endocrinology to start the long-term and short-term insulin management. COMMENTS: The patient remains in the serious medical condition. Ovi Casillas M.D. DR: KAY JOB#: [id number] CC:
--- NOTE | 2019-06-12 19:21 | NUR ---
HAND-OFF: Report given to sd calvert.
--- NOTE | 2019-06-12 19:22 | NUR ---
NURSE NOTES: Received bedside report from LU Corbett.Patient stable,SR on front desk monitor,sitting in a chair,no c/o pain,no respiratory distress noted,BS active in all quadrants,no IV access,pt pulled out IV and refused tuan cardozo MD notified,Charge nurse aware,will continue to monitor and follow POC
--- NOTE | 2019-06-12 19:42 | Neurology Progress Note ---
Interim History Interim History Interim History 59-year-old male, limited past medical history secondary to patient's condition , possible history of seizure, polysubstance abuse, patient had a in unwitnessed seizure at home, with trauma to the mouth, patient was found down, history is limited, patient found with multiple drug paraphernalia No further seizures in house CT brain no hemorrhage Objective Physical Exam Last Vital Signs Date Time Temp Pulse Resp B/P (MAP) Pulse Ox O2 Delivery O2 Flow Rate FiO2 06/12/19 18:20 80 212/142 06/12/19 17:32 96.6 24 98 06/12/19 16:00 Nasal Cannula 3.0 Laboratory Tests Test 06/12/19 15:20 06/12/19 18:20 Arterial Blood pH 7.360 (7.350-7.450) Arterial Blood Partial Pressure CO2 41.2 mmHg (35.0-45.0) Arterial Blood Partial Pressure O2 78.7 mmHg (75.0-100.0) Arterial Blood HCO3 22.8 mmol/L (22.0-26.0) Arterial Blood Oxygen Saturation 95.0 % (95-100) Arterial Blood Base Excess -2.5 (-2-2) L Ritchie Test Positive Urine Random Sodium 76 mmol/L (20-110) Head: normocophalic Neck: no rigidity EENT: benign Neurologic Exam Mental Status: awake, alert Cranial Nerve II: visual velarde Cranial Nerves III, IV, : PERRLA, EOMI Cranial Nerve V: normal facial sensations Cranial Nerve VII: no facial asymmetry Cranial Nerve VIII: normal hearing Motor System: normal muscle tone, strength 5/5 Sensory: normal pinprick Objective ataxic Impression/Recommendations Problems: (1) Seizure (2) Hypoxia (3) Altered mental state (4) Elevated troponin (5) FELIX (acute kidney injury) Diagnostic Impression acute toxic metabolic encephalopathy seizure disorder, recurrent start keppra 1 gr bid pt ot Luke Ybarra MD Jun 12, 2019 19:42
--- NOTE | 2019-06-12 19:45 | Consultation ---
DATE OF CONSULTATION: 06/12/2019 ENDOCRINOLOGY CONSULTATION CONSULTING PHYSICIAN: Rodrigo Yang M.D. REFERRING PHYSICIAN: Ovi Casillas M.D. REASON FOR CONSULTATION: Diabetes management. HISTORY OF PRESENT ILLNESS: This is a 59-year-old morbidly obese male with history of diabetes, history of seizure, polysubstance abuse, who had unwitnessed seizure at home, brought to the hospital, admitted to the telemetry for further evaluation and treatment. Glucose was 500 not in diabetic ketoacidosis. I was called to manage diabetes. PAST MEDICAL HISTORY: 1. Seizure disorder. 2. Hypertension. 3. Diabetes. 4. Chronic obstructive pulmonary disease. MEDICATIONS: Reviewed and reconciled. ALLERGIES TO MEDICATIONS: None. FAMILY HISTORY: Noncontributory. REVIEW OF SYSTEMS: As per HPI. PHYSICAL EXAMINATION: GENERAL: Awake. VITAL SIGNS: Blood pressure is 141/63, pulse 80, respiratory rate 26, and temp of 98.1. HEENT: Pupils reactive to light. Sclerae anicteric. NECK: No jugular venous distention. HEART: Regular. LUNGS: Clear. ABDOMEN: Positive bowel sounds. EXTREMITIES: No clubbing, cyanosis, or edema. LABORATORY VALUES: Sodium 132, potassium 3.6, chloride 101, bicarb 22, BUN 37, creatinine 2.8, and glucose 581. Troponin elevated at 0.156. BNP elevated [id number] DIAGNOSES: 1. Diabetes, out of control. 2. Congestive heart failure. 3. Chronic kidney disease. 4. Hypertension. 5. Seizure disorder. PLAN: 1. Continue Levemir 25 units at bedtime. 2. Add NovoLog 8 units before each meal. 3. NovoLog sliding scale before meals and at bedtime. 4. Further adjustment according to blood glucose values. Thank you, Dr. Casillas, for the courtesy of this consultation. Rodrigo Yang M.D. DR: BASHIR JOB#: [id number] CC: YOSEPH
[2019-06-12 20:00] VITALS: BP 209/138
--- NOTE | 2019-06-12 20:15 | Consultation ---
DATE OF CONSULTATION: 06/12/2019 CARDIOLOGY CONSULTATION CONSULTING PHYSICIAN: Marcelo Yao M.D. REFERRING PHYSICIAN: Ovi Casillas M.D. REASON FOR CONSULTATION: Cardiac arrhythmia including bradycardia with heart rate drop into the 30s. HISTORY OF PRESENT ILLNESS: The patient is a 59-year-old gentleman with history of congestive heart failure as well as seizure and polysubstance abuse, had an unwitnessed seizure at home with trauma to the mouth. The patient was found down. The patient was brought to the hospital. Blood pressure was 221/113 with a pulse of 117,000. Subsequently, the patient's heart rate dropped to 30. Cardiac electrophysiology consultation was obtained for further management of the patient's arrhythmia. The patient, however, has been very noncompliant and removed the intravenous and removed the telemetry monitoring. PAST MEDICAL HISTORY: As mentioned above. FAMILY HISTORY: Noncontributory. SOCIAL HISTORY: He says he has a place, but he feels like he is homeless. REVIEW OF SYSTEMS: Negative other than what was mentioned in the history of present illness. PHYSICAL EXAMINATION: VITAL SIGNS: Show blood pressure of 104/63, heart rate is 80, respirations 18, and temperature 98.1. HEAD AND NECK: Shows no JVD. LUNGS: Decreased breath sounds. CARDIOVASCULAR: Shows regular S1 and S2 with no gallop. ABDOMEN: Soft and obese. EXTREMITIES: A 1+ pitting edema. LABORATORY AND DIAGNOSTIC DATA: His EKG shows sinus tachycardia with right atrial enlargement, right superior axis, and incomplete right bundle-branch block. His labs show white count 17.1, hemoglobin 16.8, hematocrit of 49.2, and platelet count of 248,000. Sodium 132, potassium 3.6, BUN of 37, creatinine 2.8, and glucose of 581. First troponin is 0.156 and BNP 6115. Urine toxicology screen is positive for amphetamine and benzodiazepine. ASSESSMENT AND PLAN: 1. Accelerated hypertension in this patient with polysubstance abuse. Blood pressure is variable. I will start the patient on Norvasc 5 mg daily and p.r.n. clonidine. 2. Bradycardia with the heart rate dropping to 30s. Avoid beta-margie or calcium channel blockers. 3. Congestive heart failure, likely diastolic dysfunction. Ejection fraction is 50%. 4. Seizure disorder. 5. Polysubstance abuse including benzodiazepine and amphetamine. Thank you very much, Dr. Casillas, for allowing me to participate in the care of this patient. Please do not hesitate to contact me for any questions regarding my evaluation. Marcelo Yao M.D. DR: MARTÍNEZ JOB#: [id number] CC:
[2019-06-12] MEDS ORDERED: Atorvastatin 20mg tab ORAL SCH (21:00)
[2019-06-12] MEDS ORDERED: levETIRAcetam 1,000mg/NS100ml 100 ML IVPB SCH (21:00)
[2019-06-12] MEDS ORDERED: Levemir Flexpen SUBQ SCH (21:00)
--- NOTE | 2019-06-12 21:45 | Consultation ---
DATE OF CONSULTATION: 06/12/2019 CARDIOLOGY CONSULTATION CONSULTING PHYSICIAN: Marcelo Guzman M.D. REFERRING PHYSICIAN: Ovi Casillas M.D. REASON FOR CONSULTATION: Management of accelerated hypertension. HISTORY OF PRESENT ILLNESS: The patient is a very unfortunate 59-year-old gentleman, a poor historian, who has a prior history of polysubstance abuse and history of seizures, who was recently discharged from [facility] after an episode of syncope. At that time, at that hospital, the patient claims that he had no recollection of the events and when he woke up he found himself at [facility]. He was discharged and was brought into this hospital and he claims that he does not have any recollection on how he ended up in this facility. The patient's cardiovascular history is significant for history of hypertension and diabetes mellitus. It is not quite clear whether the patient has been compliant with the medications or not. The patient continues to use tobacco, use alcohol and drugs as well. Initial laboratory findings in this facility showed leukocytosis with WBC of 17.1 with 90% neutrophils. He was also found to be severely hyperglycemic with glucose of 581. Also associated renal failure with BUN and creatinine at 37 and 2.8 respectively. His first troponin I level isela to 0.156 and beta-natriuretic peptide was 5115. Toxicology ruled in the presence of amphetamines and benzodiazepines in the urine. The patient was admitted to [facility] for further evaluation and management. Cardiology consultation was made at the request of Dr. Casillas. PAST MEDICAL HISTORY: 1. Diabetes mellitus. 2. Hypertension. 3. History of seizures. 4. Medication noncompliance. 5. Polysubstance abuse. PAST SURGICAL HISTORY: None. ALLERGIES: No known drug allergies. MEDICATIONS: Besides Risperdal, the list of medication is not known. The dosage of Risperdal is not known. The patient is noncompliant with medication. SOCIAL HISTORY: He reports tobacco, alcohol and illicit drug use. FAMILY HISTORY: No premature coronary artery disease in first-degree relatives. REVIEW OF SYSTEMS: A 12-system review done essentially negative except what was mentioned in the history of present illness. PHYSICAL EXAMINATION: VITAL SIGNS: Blood pressure 221/113 mmHg, respirations 22, pulse 117, and temperature 98.1 degrees Fahrenheit. O2 saturation 94% on room air. GENERAL: The patient is a very pleasant 59-year-old gentleman, in no apparent respiratory distress. Alert and oriented x4. HEENT: Atraumatic and normocephalic. Anicteric. Pupils are equal, round, and reactive to light and accommodation. Extraocular muscles intact. There is presence of the bite monsivais over the trunk. NECK: JVP less than 5 cm. No carotid bruit. CARDIOVASCULAR: Normal S1, S2. Irregular rhythm. No murmurs, gallops, or rubs. PMI is at fourth intercostal space at the midclavicular line. LUNGS: Diminished breath sounds in both lungs. ABDOMEN: Soft, nontender, and nondistended. No hepatosplenomegaly. Positive bowel sounds. EXTREMITIES: No evidence of edema, clubbing, or cyanosis. LABORATORY FINDINGS: Hematology showed WBC 17.1, hemoglobin 15.8, hematocrit 49.2, and platelet count 248. Sodium is 133, potassium 3.6, chloride 101, bicarbonate 22, BUN 37, and creatinine 2.8. Glucose is 581. Calcium is 8.8. Magnesium is 2.2. Troponin I was 0.156. ProBNP was 5115. ABG was significant for acute respiratory acidosis with a pH of 7.06, pCO2 55, pO2 94, and bicarbonate 15.6. O2 saturation 94.6%, combined metabolic and respiratory acidosis. IMAGING: Chest x-ray showed enlarged cardiac silhouette with pulmonary vascular congestion suggestive of mild pulmonary edema. A 12-lead electrocardiogram was significant for sinus tachycardia, rate of 107 with superior axis, right bundle-branch block with left anterior fascicular block, left atrial enlargement, right atrial enlargement, but no acute ischemic changes. ASSESSMENT AND PLAN: The patient is a very unfortunate 59-year-old gentleman seen in Cardiology consultation. 1. Hypertension crisis, most likely due to medication noncompliance and triggered by this seizure activity. This condition is currently under control after stabilizing the patient. The patient is currently not on any antihypertensive medication. We will continue to monitor his blood pressure this hospitalization. The last blood pressure is in fact 104/63 mmHg of mercury. This could be secondary to effect of benzodiazepines. 2. Heart failure with normal ejection fraction. There is evidence of pseudonormalization on the transmitral flow, beta-natriuretic peptide was also elevated. At this point, in view of the severe hyperglycemia, we would hold off diuretics and rather monitor the patient. 3. Moderate pulmonary hypertension. It could be hypertensive heart disease as well as associated heart failure with normal ejection fraction. 4. Diabetes mellitus, uncontrolled with the presence of hyperglycemia. The patient benefit from aspirin and statins. I would like to thank Dr. Casillas for allowing me to participate in the care of this patient. Marcelo Guzman M.D. DR: BUD JOB#: [id number] CC:
--- NOTE | 2019-06-12 21:49 | Infectious Diseases Prog Note ---
Assessment/Plan Problems: (1) Hypoxia Assessment & Plan: with interstitial infiltrates, possible aspiration pneumonia , will switch antibiotics to aztreonam and doxycycline , repeat CXR , swallow eval when fully awake (2) Seizure Assessment & Plan: recommend neurology eval, continue tele monitor (3) Altered mental state Assessment & Plan: due to the above, recommend neurology eval, and close monitor (4) FELIX (acute kidney injury) Assessment & Plan: suspect dehydration, continue hydration, monitor renal function, avoid nephrotoxics , renal is following Subjective Allergies: Coded Allergies: No Known Allergies (Unverified , 02/24/18) Objective Vital Signs Last 24 Hour Vital Signs Date Time Temp Pulse Resp B/P (MAP) Pulse Ox O2 Delivery O2 Flow Rate FiO2 06/12/19 18:20 80 212/142 06/12/19 17:32 96.6 24 212/142 (165) 98 06/12/19 16:00 Nasal Cannula 3.0 06/12/19 12:00 Nasal Cannula 2.0 06/12/19 08:00 Nasal Cannula 2.0 06/12/19 08:00 98.1 80 26 104/63 (77) 100 06/12/19 07:44 93 06/12/19 04:00 97.2 87 20 168/114 (132) 96 06/12/19 04:00 Nasal Cannula 2.0 06/12/19 03:37 89 06/12/19 00:00 Nasal Cannula 2.0 06/12/19 00:00 98.0 110 28 154/97 (116) 94 06/11/19 23:40 98 Height (Feet): 5 Height (Inches): 10.00 Weight (Pounds): 280 Laboratory Tests Test 06/12/19 15:20 06/12/19 18:20 Arterial Blood pH 7.360 (7.350-7.450) Arterial Blood Partial Pressure CO2 41.2 mmHg (35.0-45.0) Arterial Blood Partial Pressure O2 78.7 mmHg (75.0-100.0) Arterial Blood HCO3 22.8 mmol/L (22.0-26.0) Arterial Blood Oxygen Saturation 95.0 % (95-100) Arterial Blood Base Excess -2.5 (-2-2) L Ritchie Test Positive Urine Random Sodium 76 mmol/L (20-110) Current Medications Medications (Trade) Dose Ordered Sig/Igor Route PRN Reason Start Time Stop Time Status Last Admin Dose Admin Amlodipine Besylate (Norvasc) 2.5 mg DAILY ORAL 06/12/19 18:15 07/12/19 18:14 06/12/19 18:20 Atorvastatin Calcium (Lipitor) 20 mg BEDTIME ORAL 06/12/19 21:00 07/12/19 20:59 06/12/19 20:51 Azithromycin (Zithromax) 500 mg Q24H ORAL 06/12/19 17:00 06/19/19 16:59 06/12/19 17:04 Ceftriaxone Sodium (Rocephin) 2 gm BID IM 06/12/19 21:30 06/19/19 21:29 UNV Clonidine HCl (Catapres Tab) 0.1 mg TIDPRN PRN ORAL for SBP >160 mmHg 06/12/19 18:15 07/12/19 18:14 Dextrose (Dextrose 50%) 25 ml Q30M PRN IV Hypoglycemia 06/12/19 11:00 07/12/19 10:59 Dextrose (Dextrose 50%) 50 ml Q30M PRN IV Hypoglycemia 06/12/19 11:00 07/12/19 10:59 Docusate Sodium (Colace) 100 mg TWICE A DAY ORAL 06/12/19 18:00 07/12/19 17:59 06/12/19 17:04 Heparin Sodium (Porcine) (Heparin 5000 units/ml) 5,000 units EVERY 12 HOURS SUBQ 06/12/19 10:45 07/12/19 10:44 Insulin Aspart (NovoLOG) BEFORE MEALS AND HS SUBQ 06/11/19 22:00 07/11/19 21:59 06/12/19 20:53 Insulin Aspart (NovoLOG) 8 units NOVOTIAC SUBQ 06/12/19 11:50 07/12/19 11:49 06/12/19 17:06 Insulin Detemir (Levemir) 25 units QHS SUBQ 06/12/19 21:00 07/11/19 21:59 06/12/19 20:52 Levetiracetam (Keppra) 1,000 mg ONCE ORAL 06/12/19 21:45 06/12/19 22:45 Levetiracetam (Keppra) 1,000 mg Q12HR ORAL 06/13/19 09:00 07/13/19 08:59 Lorazepam (Ativan 2mg/ml 1ml) 2 mg Q8H PRN IV For Anxiety 06/11/19 20:15 06/18/19 20:14 Lorazepam (Ativan) 2 mg Q6H PRN ORAL Agitation 06/12/19 11:45 06/19/19 11:44 Metronidazole (Flagyl) 500 mg Q8HR ORAL 06/12/19 22:00 06/19/19 21:59 Pantoprazole (Protonix) 40 mg DAILY ORAL 06/12/19 09:00 07/12/19 08:59 06/12/19 08:27 Kelsey Farah M.D. Jun 12, 2019 21:49
[2019-06-12] MEDS ORDERED: metroNIDAZOLE 500mg tab ORAL SCH (22:00)
[2019-06-12] MEDS ORDERED: cefTRIAXone 2 GM in D5W 55 ML IVPB SCH (22:00)
[2019-06-12] MEDS ORDERED: Lidocaine 1% MPF 10mg/ml 5ml INJ SCH (22:00)
--- NOTE | 2019-06-12 22:00 | Consultation ---
DATE OF CONSULTATION: 06/12/2019 PULMONARY CONSULTATION CONSULTING PHYSICIAN: Clint Shea M.D. REFERRING PHYSICIAN: Ovi Casillas M.D. REASON FOR CONSULTATION: Critical care management. HISTORY OF PRESENT ILLNESS: The patient is a 59-year-old male with a likely history of underlying seizure disorder and polysubstance abuse, who was brought in after he had an unwitnessed seizure at home. He had trauma to his mouth. He was found down. He had multiple drug paraphernalia on him initially when he was found. When the ER doctor first saw him, he endorsed using drugs. He had elevated troponin, acute kidney injury, and acidosis. Other than that his T-max was 98.1 and he has been stable on two liters. He has hypertensive urgency 221/113, which has since resolved. His urine toxicology was positive for amphetamines and benzodiazepines. White count 17. VBG was 7.06/52/94/15/55/94. Glucose was 581 on admission. Troponin and BNP were elevated. Albumin was low. He was hyponatremic with evidence of FELIX with BUN and creatinine of 37/2.8. His urinalysis had 4+ protein, 4+ glucose, and 4+ blood. Chest x-ray done in the emergency department and reviewed by myself showed evidence of congestive heart failure with bilateral interstitial opacities and cardiomegaly. CT scan of the head did not show any acute findings, but there was atrophy and nonspecific changes. There was evidence of old left orbital trauma. The patient himself at the time of my interview denies specific complaints. He denies cough, wheezing, hemoptysis, shortness of breath, nausea, vomiting, diarrhea, constipation, or any other complaints. PAST MEDICAL HISTORY: Likely seizure disorder and underlying psychiatric disorder based on medication list, possible diabetes, polysubstance abuse, schizophrenia, hypertension, and chronic bilateral lower extremity cellulitis. Of note, [facility] based on my review of prior records. No further history is obtainable. ALLERGIES: No known drug allergies. MEDICATIONS: Prior to admission medications reviewed. Current medications reviewed. SOCIAL HISTORY: There is history of drug, alcohol, and tobacco use. FAMILY HISTORY: Noncontributory. REVIEW OF SYSTEMS: Negative other than history of present illness. PHYSICAL EXAMINATION: VITAL SIGNS: Temperature 98.1, pulse 80, blood pressure 104/63, respiratory rate 26, and saturating 100% on two liters. GENERAL: He is disheveled male, in no acute distress. Awake, alert, and oriented x3. HEENT: Normocephalic and atraumatic. Oropharynx is clear with moist mucous membranes. NECK: Supple without lymphadenopathy or JVD. CHEST: Fairly clear with some bibasilar rales. HEART: Regular rate and rhythm. ABDOMEN: Soft, nontender, and nondistended. EXTREMITIES: No cyanosis, clubbing, or edema. ANCILLARY DATA: White count 17.1, hemoglobin 15.8, and platelet count 248,000. VBG 7.068/55/94/15/55/94. Chemistry - sodium 133, potassium 3.6, chloride 101, bicarbonate 22, BUN 37, creatinine 2.8, GFR 28, glucose 581, and calcium 8.8. Magnesium 2.2. Total bilirubin 0.4. AST 17, ALT 14, and alkaline phosphatase 191. Total CK 246 and troponin 0.156. BNP 5115. Total protein 7.1 and albumin 2.6. Urinalysis - 4+ protein, 4+ glucose, 4+ blood, and 10 to 15 red blood cells. Urine toxicology screen positive for amphetamines and benzodiazepines. Acetaminophen is negative. negative. Depakote is negative. Carbamazepine is negative. Cultures pending. IMAGING: Chest x-ray with bilateral congestion. CT of the head with chronic changes. ASSESSMENT: The patient is a 59-year-old male with likely underlying psychiatric disorder, polysubstance abuse, possible seizure disorder, and diabetes presenting after unwitnessed seizures with evidence of acute kidney injury, non ST-elevation myocardial infarction versus demand ischemia, hyperglycemia, and positive urine toxicology screen. PROBLEM LIST: 1. Acute hypercapnic respiratory failure. 2. Acute kidney injury, unlikely chronic kidney disease. 3. Encephalopathy, likely secondary to polysubstance abuse. 4. Questionable seizure. 5. Non-ST elevation myocardial infarction. 6. Likely congestive heart failure. 7. Diabetes. TREATMENT PLAN: 1. Check stat ABG right now. 2. Continue Rocephin and azithromycin for empiric treatment of , however, I will add Flagyl for possible aspiration. 3. Monitor volumes and renal function, cautious IV fluid hydration. 4. Followup echocardiogram. 5. Followup duplex. 6. Trend EKG and troponin. 7. The patient has been seen by Cardiology and Renal. 8. Glycemic control. 9. Aspiration precautions. 10. Swallow evaluation. 11. Monitor for signs of withdrawal. 12. DVT prophylaxis, heparin subcutaneous. 13. Psychiatric evaluation pending as well. Dr. Casillas, thank you for allowing me to assist in the care of your patient. If I may be of any assistance in the future, please do not hesitate to ask. Patti Omer JOB#: [id number] CC:
[2019-06-13] VITALS: BP 191/134
[2019-06-13 04:00] VITALS: BP 205/147
--- NOTE | 2019-06-13 04:59 | Consultation ---
DATE OF CONSULTATION: 06/12/2019 CONSULTING PHYSICIAN: Pam Portillo M.D. HISTORY OF PRESENT ILLNESS: This is a 59-year-old male with a history of multiple medical problems including seizure disorder, congestive heart failure, diabetes, and obesity, who has been admitted to the hospital for medical stabilization. The Psychiatry was consulted as the patient is very impulsive, noncompliance, and depressed. The patient initially was delirious and was unable to provide any history. However, during my evaluation, he was able to answer the questions. He was able to understand process, communicate, and appreciate information was given to him in regards to his medical conditions. The patient knows the situation he is in. The patient was aggressive morning. The patient has poor insight into the situation he is in. PAST PSYCHIATRIC HISTORY: Depression and anxiety. PAST MEDICAL HISTORY: As above. ALLERGIES: No known drug allergies. SUBSTANCE USE HISTORY: The patient denied any history of illicit drug use or alcohol. However, his urine toxicology is positive for amphetamines and benzodiazepine. The patient is noncompliant with his medications. MENTAL STATUS EXAMINATION: The patient is awake and alert to time, self, place, and situation. Mood is irritable. Affect is constricted. Congruent mood. Thought process is concrete. Thought content, no suicidal or homicidal ideations. No psychotic symptoms. Insight and judgment are poor. ASSESSMENT: The patient has capacity to leave against medical advice. The patient is not an imminent danger to self or others. The patient is not meeting the criteria for 5150. [place] I Anxiety disorder. Substance use disorder. [place] II Deferred. [place] III As above. [place] IV Low. [place] V 50. PLAN: 1. Ativan p.r.n. the patient on Zyprexa 5 mg p.o. at bedtime. 2. Discussed the case with Dr. Casillas. Pam Portillo M.D. DR: TERESA JOB#: [id number] CC: YOSEPH
--- NOTE | 2019-06-13 05:00 | NUR ---
NURSE NOTES: Urine collected and dropped to lab,will continue to monitor.patient refused morning care,sleeping in a chair
[2019-06-13] MEDS: NovoLOG Insulin Flexpen SUBQ SCH ×2 (05:25)
[2019-06-13 06:56] LABS: BASOPHILS % (AUTO) 1.4 % (0.0-2.0); EOSINOPHILS % (AUTO) 1.5 % (0.0-3.0); HEMATOCRIT 50.4 % (42.0-52.0); HEMOGLOBIN 16.3 G/DL (14.2-18.0); LYMPHOCYTES % (AUTO) 17.7 % (20.0-45.0); MEAN CORPUSCULAR VOLUME 89 FL (80-99); MONOCYTES % (AUTO) 5.4 % (1.0-10.0); NEUTROPHILS % (AUTO) 73.9 % (45.0-75.0); PLATELET COUNT 216 K/UL (150-450); RED BLOOD COUNT 5.68 M/UL (4.70-6.10); RED CELL DISTRIBUTION WIDTH 13.9 % (11.6-14.8)
--- NOTE | 2019-06-13 07:15 | NUR ---
HAND-OFF: Report given to LU garcia.Patient stable,sleeping in a chair.
--- NOTE | 2019-06-13 07:16 | NUR ---
NURSE NOTES: Received patient sitting in chair, asleep, easy to arouse. Approached in calm and unhurried manner. Denies any pain at this time. Patient responds with yelling behavior. Clutter free environment provided. Patient refused IV insertion. Will continue to monitor.
[2019-06-13 07:17] LABS: ALANINE AMINOTRANSFERASE 17 U/L (12-78); ALBUMIN 2.8 G/DL (3.4-5.0); ALBUMIN/GLOBULIN RATIO 0.6 (1.0-2.7); ALKALINE PHOSPHATASE 179 U/L (46-116); ANION GAP 9 mmol/L (5-15); ASPARTATE AMINO TRANSFERASE 20 U/L (15-37); BILIRUBIN,TOTAL 0.5 MG/DL (0.2-1.0); BLOOD UREA NITROGEN 35 mg/dL (7-18); CALCIUM 8.9 MG/DL (8.5-10.1); CARBON DIOXIDE 29 MMOL/L (21-32); CHLORIDE 106 MMOL/L (98-107); CREATININE 1.8 MG/DL (0.55-1.30); POTASSIUM 3.6 MMOL/L (3.5-5.1); SODIUM 144 MMOL/L (136-145)
--- NOTE | 2019-06-13 07:19 | General Progress Note ---
Assessment/Plan Problem List: (1) Diabetes mellitus out of control ICD Codes: E11.65 - Type 2 diabetes mellitus with hyperglycemia SNOMED: 77674491, 972760717 (2) Elevated troponin ICD Codes: R74.8 - Abnormal levels of other serum enzymes SNOMED: 451755806, 846526827, 850801809 (3) FELIX (acute kidney injury) ICD Codes: N17.9 - Acute kidney failure, unspecified SNOMED: 30163782, 5164483, 104055072 Assessment/Plan: continue Levemir 25 units qhs continue Novolog 8 units ac tid continue NISS ac / hs Subjective Allergies: Coded Allergies: No Known Allergies (Unverified , 02/24/18) All Systems: reviewed and negative except above Subjective Item Value Date Time Bedside Blood Glucose 179 mg/dl H 06/13/19 0630 Bedside Blood Glucose 162 mg/dl H 06/12/19 2100 Bedside Blood Glucose 240 mg/dl H 06/12/19 1706 events noted Objective Last 24 Hour Vital Signs Date Time Temp Pulse Resp B/P (MAP) Pulse Ox O2 Delivery O2 Flow Rate FiO2 06/13/19 04:00 98.1 87 20 205/147 (166) 96 06/13/19 04:00 Nasal Cannula 3.0 06/13/19 03:43 91 06/13/19 00:00 97.8 92 20 191/134 (153) 95 06/13/19 00:00 Room Air 06/13/19 00:00 94 06/12/19 23:36 94 06/12/19 22:14 204/143 06/12/19 20:00 Nasal Cannula 3.0 06/12/19 20:00 87 06/12/19 20:00 100.0 98 20 209/138 (161) 97 06/12/19 18:20 80 212/142 06/12/19 17:32 96.6 24 212/142 (165) 98 06/12/19 16:00 Nasal Cannula 3.0 06/12/19 12:00 Nasal Cannula 2.0 06/12/19 08:00 Nasal Cannula 2.0 06/12/19 08:00 98.1 80 26 104/63 (77) 100 06/12/19 07:44 93 Intake and Output 06/12/19 06/13/19 19:00 07:00 Intake Total 600 ml 900 ml Output Total 850 ml 900 ml Balance -250 ml 0 ml Intake Oral 600 ml 900 ml Output Urine Total 850 ml 900 ml # Voids 3 5 # Bowel Movements 3 Laboratory Tests 06/12/19 15:20: Arterial Blood pH 7.360, Arterial Blood Partial Pressure CO2 41.2, Arterial Blood Partial Pressure O2 78.7, Arterial Blood HCO3 22.8, Arterial Blood Oxygen Saturation 95.0, Arterial Blood Base Excess -2.5L, Ritchie Test Positive 06/12/19 18:20: Urine Random Sodium 76 06/13/19 05:00: Urine Eosinophils [Pending] 06/13/19 05:55: White Blood Count 13.0H, Red Blood Count 5.68, Hemoglobin 16.3, Hematocrit 50.4 , Mean Corpuscular Volume 89, Mean Corpuscular Hemoglobin 28.7, Mean Corpuscular Hemoglobin Concent 32.3, Red Cell Distribution Width 13.9, Platelet Count 216, Mean Platelet Volume 6.7, Neutrophils (%) (Auto) 73.9, Lymphocytes (% ) (Auto) 17.7L, Monocytes (%) (Auto) 5.4, Eosinophils (%) (Auto) 1.5, Basophils (%) (Auto) 1.4, Sodium Level [Pending], Potassium Level [Pending], Chloride Level [Pending], Carbon Dioxide Level [Pending], Blood Urea Nitrogen [Pending], Creatinine [Pending], Estimat Glomerular Filtration Rate [Pending], Glucose Level [Pending], Hemoglobin A1c [Pending], Uric Acid [Pending], Calcium Level [ Pending], Phosphorus Level [Pending], Magnesium Level [Pending], Total Bilirubin [Pending], Gamma Glutamyl Transpeptidase [Pending], Aspartate Amino Transf (AST/SGOT) [Pending], Alanine Aminotransferase (ALT/SGPT) [Pending], Alkaline Phosphatase [Pending], Total Creatine Kinase [Pending], C-Reactive Protein, Quantitative [Pending], Pro-B-Type Natriuretic Peptide [Pending], Total Protein [Pending], Albumin [Pending], Globulin [Pending], Thyroid Stimulating Hormone (TSH) [Pending] Height (Feet): 5 Height (Inches): 10.00 Weight (Pounds): 280 General Appearance: no apparent distress Neck: normal alignment Cardiovascular: normal rate Respiratory/Chest: decreased breath sounds Abdomen: normal bowel sounds Objective Current Medications Medications (Trade) Dose Ordered Sig/Igor Route PRN Reason Start Time Stop Time Status Last Admin Dose Admin Amlodipine Besylate (Norvasc) 2.5 mg DAILY ORAL 06/12/19 18:15 07/12/19 18:14 06/12/19 18:20 Atorvastatin Calcium (Lipitor) 20 mg BEDTIME ORAL 06/12/19 21:00 07/12/19 20:59 06/12/19 20:51 Aztreonam 1 gm/ Dextrose 55 ml @ 110 mls/hr Q12HR IVPB 06/13/19 09:00 06/20/19 08:59 UNV Ceftriaxone Sodium (Rocephin) 2 gm Q24HRS IM 06/12/19 22:00 06/19/19 21:59 06/12/19 22:15 Clonidine HCl (Catapres Tab) 0.1 mg TIDPRN PRN ORAL for SBP >160 mmHg 06/12/19 18:15 07/12/19 18:14 06/12/19 22:14 Dextrose (Dextrose 50%) 25 ml Q30M PRN IV Hypoglycemia 06/12/19 11:00 07/12/19 10:59 Dextrose (Dextrose 50%) 50 ml Q30M PRN IV Hypoglycemia 06/12/19 11:00 07/12/19 10:59 Docusate Sodium (Colace) 100 mg TWICE A DAY ORAL 06/12/19 18:00 07/12/19 17:59 06/12/19 17:04 Doxycycline Hyclate 100 mg/ Dextrose 110 ml @ 110 mls/hr Q12HR IV 06/13/19 09:00 06/20/19 08:59 UNV Heparin Sodium (Porcine) (Heparin 5000 units/ml) 5,000 units EVERY 12 HOURS SUBQ 06/12/19 10:45 07/12/19 10:44 Insulin Aspart (NovoLOG) BEFORE MEALS AND HS SUBQ 06/11/19 22:00 07/11/19 21:59 06/13/19 05:25 Insulin Aspart (NovoLOG) 8 units NOVOTIAC SUBQ 06/12/19 11:50 07/12/19 11:49 06/13/19 05:25 Insulin Detemir (Levemir) 25 units QHS SUBQ 06/12/19 21:00 07/11/19 21:59 06/12/19 20:52 Levetiracetam (Keppra) 1,000 mg Q12HR ORAL 06/13/19 09:00 07/13/19 08:59 Lidocaine (Xylocaine 1% MPF 5ml) 4.2 ml Q24HRS INJ 06/12/19 22:00 07/12/19 21:59 06/12/19 22:15 Lorazepam (Ativan 2mg/ml 1ml) 2 mg Q8H PRN IV For Anxiety 06/11/19 20:15 06/18/19 20:14 Lorazepam (Ativan) 2 mg Q6H PRN ORAL Agitation 06/12/19 11:45 06/19/19 11:44 06/13/19 03:56 Olanzapine (ZyPREXA) 5 mg BEDTIME ORAL 06/13/19 21:00 07/13/19 20:59 Pantoprazole (Protonix) 40 mg DAILY ORAL 06/12/19 09:00 07/12/19 08:59 06/12/19 08:27 Rodrigo Yang MD Jun 13, 2019 07:19
[2019-06-13 08:00] VITALS: BP 188/125
[2019-06-13 08:45] LABS: CREATINE KINASE 210 U/L (26-308); GAMMA GLUTAMYL TRANSPEPTIDASE 574 U/L (5-85)
[2019-06-13] MEDS ORDERED: Aztreonam Inj 1 GM in D5W 55 ML IVPB SCH (09:00)
[2019-06-13] MEDS ORDERED: Doxycycline Hyclate 100 MG in D5W 110 ML IV SCH (09:00)
[2019-06-13 09:08] LABS: PHOSPHORUS 3.5 MG/DL (2.5-4.9)
--- NOTE | 2019-06-13 10:00 | NUR ---
NURSE NOTES: Patient is screaming in the room and threatening nurses if we don't return his ramirez to him. Charge nurse made aware, security and pump house technician was called.
[2019-06-13] MEDS: Docusate 100mg cap ORAL SCH (10:09)
[2019-06-13] MEDS: Heparin 5000 units/ml inj SUBQ SCH (10:10)
--- NOTE | 2019-06-13 10:11 | NUR ---
NURSE NOTES: Patient signed AMA. Patient said that he's going to [facility]. Patient's ramirez returned with security staff in the room witnessing the ramirez counting.
[2019-06-13] MEDS ORDERED: D5NS 1000ml IV ONE (10:48)
[2019-06-13] MEDS ORDERED: Tubing IV Secondary IV ONE (10:48)
--- NOTE | 2019-06-13 10:49 | NUR ---
AMA: SEE AMA FORM. Patient left the unit, belongings reviewed and given to patient. Provided patient with shoes. Dr. Casillas and Dr. Portillo made aware. ID band removed.
--- NOTE | 2019-06-13 16:50 | Neurology Progress Note ---
Interim History Interim History Interim History doign well, at baseline Objective Physical Exam Last Vital Signs Date Time Temp Pulse Resp B/P (MAP) Pulse Ox O2 Delivery O2 Flow Rate FiO2 06/13/19 08:00 Nasal Cannula 2.0 06/13/19 08:00 97.5 86 22 188/125 (146) 92 06/13/19 07:25 32 Laboratory Tests Test 06/12/19 18:20 06/13/19 05:00 06/13/19 05:55 Urine Random Sodium 76 mmol/L (20-110) Urine Eosinophils None seen (NONE SEEN) White Blood Count 13.0 K/UL (4.8-10.8) H Red Blood Count 5.68 M/UL (4.70-6.10) Hemoglobin 16.3 G/DL (14.2-18.0) Hematocrit 50.4 % (42.0-52.0) Mean Corpuscular Volume 89 FL (80-99) Mean Corpuscular Hemoglobin 28.7 PG (27.0-31.0) Mean Corpuscular Hemoglobin Concent 32.3 G/DL (32.0-36.0) Red Cell Distribution Width 13.9 % (11.6-14.8) Platelet Count 216 K/UL (150-450) Mean Platelet Volume 6.7 FL (6.5-10.1) Neutrophils (%) (Auto) 73.9 % (45.0-75.0) Lymphocytes (%) (Auto) 17.7 % (20.0-45.0) L Monocytes (%) (Auto) 5.4 % (1.0-10.0) Eosinophils (%) (Auto) 1.5 % (0.0-3.0) Basophils (%) (Auto) 1.4 % (0.0-2.0) Sodium Level 144 MMOL/L (136-145) Potassium Level 3.6 MMOL/L (3.5-5.1) Chloride Level 106 MMOL/L (98-107) Carbon Dioxide Level 29 MMOL/L (21-32) Anion Gap 9 mmol/L (5-15) Blood Urea Nitrogen 35 mg/dL (7-18) H Creatinine 1.8 MG/DL (0.55-1.30) H Estimat Glomerular Filtration Rate 47.4 mL/min (>60) Glucose Level 155 MG/DL (74-106) H Hemoglobin A1c 7.9 % (4.3-6.0) H Uric Acid 7.7 MG/DL (2.6-7.2) H Calcium Level 8.9 MG/DL (8.5-10.1) Phosphorus Level 3.5 MG/DL (2.5-4.9) Magnesium Level 2.2 MG/DL (1.8-2.4) Total Bilirubin 0.5 MG/DL (0.2-1.0) Gamma Glutamyl Transpeptidase 574 U/L (5-85) H Aspartate Amino Transf (AST/SGOT) 20 U/L (15-37) Alanine Aminotransferase (ALT/SGPT) 17 U/L (12-78) Alkaline Phosphatase 179 U/L (46-116) H Total Creatine Kinase 210 U/L (26-308) C-Reactive Protein, Quantitative 1.1 mg/dL (0.00-0.90) H Pro-B-Type Natriuretic Peptide 2945 pg/mL (0-125) H Total Protein 7.5 G/DL (6.4-8.2) Albumin 2.8 G/DL (3.4-5.0) L Globulin 4.7 g/dL Albumin/Globulin Ratio 0.6 (1.0-2.7) L Thyroid Stimulating Hormone (TSH) 0.980 uiU/mL (0.358-3.740) Head: normocophalic Neck: no rigidity EENT: benign Neurologic Exam Mental Status: awake, alert Cranial Nerve II: visual velarde Cranial Nerves III, IV, : PERRLA, EOMI Cranial Nerve V: normal facial sensations Cranial Nerve VII: no facial asymmetry Cranial Nerve VIII: normal hearing Motor System: normal muscle tone, strength 5/5 Sensory: normal pinprick Objective ataxic Impression/Recommendations Problems: (1) Seizure (2) Hypoxia (3) Altered mental state (4) Elevated troponin (5) FELIX (acute kidney injury) Diagnostic Impression acute toxic metabolic encephalopathy seizure disorder, recurrent start keppra 1 gr bid pt ot Luke Ybarra MD Jun 13, 2019 16:50
--- NOTE | 2019-06-13 17:30 | Consultation ---
DATE OF CONSULTATION: 06/12/2019 INFECTIOUS DISEASE CONSULTATION CONSULTING PHYSICIAN: Kelsey Farah M.D. REFERRING PHYSICIAN: Ovi Casillas M.D. REASON FOR CONSULTATION: Hypoxemia, possible aspiration pneumonia. Recommendation for antibiotics treatment in a patient who had a seizure and altered. HISTORY OF PRESENT ILLNESS: The patient is a 59-year-old male, with past medical history of alcohol abuse, drug abuse, hypertension, and diabetes, who was brought into [facility] Emergency Room for seizure breakthrough and multiple substance abuse. The patient had an unwitnessed seizure at home with trauma to his mouth, was found down with multiple drugs around, so he was brought into the emergency room for evaluation. Blood pressure was found to be elevated 221/113 with temperature of 98.1. The patient was postictal, in moderate distress. Workup in the ER showed significant acidosis on blood gas with significant leukocytosis concerning for sepsis or infectious process. His chest x-ray also showed interstitial infiltration, possible pneumonia, so Infectious Disease consultation was requested for antibiotics treatment and further management. As of note, the patient is altered, incoherent, and cannot provide any history at this point. History was mainly obtained from the medical record and nursing staff. REVIEW OF SYSTEMS: Unable to obtain. The patient is altered, cannot provide any history. PAST MEDICAL HISTORY: Significant for hypertension, diabetes, and drug abuse. MEDICATIONS: The patient was started on ceftriaxone, metronidazole empirically. For the rest of his medications, please refer to MAR. ALLERGIES: No known drug allergy. SOCIAL HISTORY: The patient uses drugs, alcohol and tobacco almost daily. Unclear where he lives. Unclear his marital status or work condition. FAMILY HISTORY: Unable to obtain. PHYSICAL EXAMINATION: VITAL SIGNS: Temperature 98.1, pulse 80, respirations 26, and blood pressure 104/63. Saturation 100% on 2 L nasal cannula. GENERAL: A middle-aged male, lying in bed, confused, altered, incoherent, not in acute distress. HEENT: Normocephalic and atraumatic. Pupils reactive to light equally and rounded. Unable to assess oral mucosa well. The patient is not following command. No trauma on the face except the lips. NECK: Supple. No lymphadenopathy. CARDIOVASCULAR: Regular rate and rhythm. No murmur or gallop. LUNGS: Clear bilaterally. No wheezing or rhonchi. Diminished breathing sounds at the bases. ABDOMEN: Soft, nontender, and nondistended. Normal bowel sounds. No hepatosplenomegaly. No ascites. EXTREMITIES: No edema. No cyanosis. LABORATORY DATA: Showed white count 17,100 on admission, hemoglobin 15.8, and platelet count 248. BUN 35, creatinine 1.8. Glucose 155. Urinalysis showed 10 to 15 red blood cells, +4 blood, +4 protein, and glucose. Toxicology screening tested positive for amphetamine and benzodiazepine. IMAGING: Chest x-ray on admission showed congestive heart failure. Head CT scan showed no acute intracranial bleed, mass effect, or edema. Mild atrophy of the brain. Nonspecific white matter hypoattenuation due to chronic small vessel disease. ASSESSMENT AND RECOMMENDATION: 1. Hypoxemia with lung interstitial infiltrate, possible aspiration pneumonia due to altered mental status. We will start the patient on aztreonam and doxycycline empiric coverage with aspiration precaution. Keep head of bed more than 30 degrees. 2. Seizure disorder. Recommend Neurology evaluation and seizure medicine to be started. Monitor in telemetry. 3. Altered mental status. Suspect toxic and metabolic encephalopathy due to drug abuse and seizure disorder. Neurology evaluation is in progress. Avoid aspiration with seizure precaution. 4. Acute renal failure, suspect dehydration and possibly due to drug side effect. Continue hydration. Avoid nephrotoxics. Renal is following. Thank you for the consult. ID will continue to follow. Please feel free to call with any question. Kelsey Farah M.D. DR: CLAIRE JOB#: [id number] CC:
[2019-06-13] MEDS ORDERED: OLANZapine 2.5mg tab ORAL SCH (21:00)
--- NOTE | 2019-06-13 22:45 | Cardiology Progress Note ---
Assessment/Plan Assessment/Plan 1. Hypertension crisis, most likely due to medication noncompliance and triggered by this seizure activity. Continue amlodipine. 2. Heart failure with normal ejection fraction. 3. Moderate pulmonary hypertension. 4. Diabetes mellitus, uncontrolled with the presence of hyperglycemia. Consider aspirin and statins. Subjective Subjective Sinus rhythm at rate of 86. Agitated and verbally abusive at times. Refusing IV insertion. Non-compliant with medication ordered. Objective Last 24 Hour Vital Signs Date Time Temp Pulse Resp B/P (MAP) Pulse Ox O2 Delivery O2 Flow Rate FiO2 06/13/19 08:00 Nasal Cannula 2.0 06/13/19 08:00 97.5 86 22 188/125 (146) 92 06/13/19 07:40 92 06/13/19 07:25 98 Nasal Cannula 3.0 32 06/13/19 04:00 98.1 87 20 205/147 (166) 96 06/13/19 04:00 Nasal Cannula 3.0 06/13/19 03:43 91 06/13/19 00:00 97.8 92 20 191/134 (153) 95 06/13/19 00:00 Room Air 06/13/19 00:00 94 06/12/19 23:36 94 Intake and Output 06/12/19 06/13/19 19:00 07:00 Intake Total 600 ml 900 ml Output Total 850 ml 900 ml Balance -250 ml 0 ml Intake Oral 600 ml 900 ml Output Urine Total 850 ml 900 ml # Voids 3 5 # Bowel Movements 3 2D Echo: LVEF 50%,Mild LVH, Mild MR,Grade II LVDD (pseudo-normal LV physio), RVSP 50 Laboratory Tests Test 06/13/19 05:00 06/13/19 05:55 Urine Eosinophils None seen (NONE SEEN) White Blood Count 13.0 K/UL (4.8-10.8) H Red Blood Count 5.68 M/UL (4.70-6.10) Hemoglobin 16.3 G/DL (14.2-18.0) Hematocrit 50.4 % (42.0-52.0) Mean Corpuscular Volume 89 FL (80-99) Mean Corpuscular Hemoglobin 28.7 PG (27.0-31.0) Mean Corpuscular Hemoglobin Concent 32.3 G/DL (32.0-36.0) Red Cell Distribution Width 13.9 % (11.6-14.8) Platelet Count 216 K/UL (150-450) Mean Platelet Volume 6.7 FL (6.5-10.1) Neutrophils (%) (Auto) 73.9 % (45.0-75.0) Lymphocytes (%) (Auto) 17.7 % (20.0-45.0) L Monocytes (%) (Auto) 5.4 % (1.0-10.0) Eosinophils (%) (Auto) 1.5 % (0.0-3.0) Basophils (%) (Auto) 1.4 % (0.0-2.0) Sodium Level 144 MMOL/L (136-145) Potassium Level 3.6 MMOL/L (3.5-5.1) Chloride Level 106 MMOL/L (98-107) Carbon Dioxide Level 29 MMOL/L (21-32) Anion Gap 9 mmol/L (5-15) Blood Urea Nitrogen 35 mg/dL (7-18) H Creatinine 1.8 MG/DL (0.55-1.30) H Estimat Glomerular Filtration Rate 47.4 mL/min (>60) Glucose Level 155 MG/DL (74-106) H Hemoglobin A1c 7.9 % (4.3-6.0) H Uric Acid 7.7 MG/DL (2.6-7.2) H Calcium Level 8.9 MG/DL (8.5-10.1) Phosphorus Level 3.5 MG/DL (2.5-4.9) Magnesium Level 2.2 MG/DL (1.8-2.4) Total Bilirubin 0.5 MG/DL (0.2-1.0) Gamma Glutamyl Transpeptidase 574 U/L (5-85) H Aspartate Amino Transf (AST/SGOT) 20 U/L (15-37) Alanine Aminotransferase (ALT/SGPT) 17 U/L (12-78) Alkaline Phosphatase 179 U/L (46-116) H Total Creatine Kinase 210 U/L (26-308) C-Reactive Protein, Quantitative 1.1 mg/dL (0.00-0.90) H Pro-B-Type Natriuretic Peptide 2945 pg/mL (0-125) H Total Protein 7.5 G/DL (6.4-8.2) Albumin 2.8 G/DL (3.4-5.0) L Globulin 4.7 g/dL Albumin/Globulin Ratio 0.6 (1.0-2.7) L Thyroid Stimulating Hormone (TSH) 0.980 uiU/mL (0.358-3.740) Microbiology Date/Time Source Procedure Growth Status 06/11/19 14:15 Blood Blood Culture - Preliminary NO GROWTH AFTER 24 HOURS Resulted 06/11/19 14:03 Blood Blood Culture - Preliminary NO GROWTH AFTER 24 HOURS Resulted 06/11/19 14:03 Nasal Nares MRSA Culture - Final NO METHICILLIN RESISTANT STAPH AUREUS... Complete 06/11/19 14:03 Rectum VRE Culture - Final NO VANCOMYCIN RESISTANT ENTEROCOCCUS ... Complete 06/11/19 14:03 Rectum - Final NO CARBAPENEM-RESISTANT ENTEROBACTERI... Complete Objective HEENT: Atraumatic and normocephalic. Anicteric. Pupils are equal, round, and reactive to light and accommodation. Extraocular muscles intact. There is presence of the bite monsivais over the trunk. NECK: JVP less than 5 cm. No carotid bruit. CARDIOVASCULAR: Normal S1, S2. Irregular rhythm. No murmurs, gallops, or rubs. PMI is at fourth intercostal space at the midclavicular line. LUNGS: Diminished breath sounds in both lungs. ABDOMEN: Soft, nontender, and nondistended. No hepatosplenomegaly. Positive bowel sounds. EXTREMITIES: No evidence of edema, clubbing, or cyanosis. Marcelo Guzman MD Jun 13, 2019 22:45
--- NOTE | 2019-06-14 10:02 | Discharge Summary ---
Discharge Summary Discharge Summary _ DATE OF ADMISSION: 06/11/2019 DATE OF DISCHARGE: 06/13/2019 Patient left AGAINST MEDICAL ADVICE REASON FOR ADMISSION: 59 years old male with past medical history of seizure disorder, diabetes mellitus, congestive heart failure, noncompliance, was found on the ground. History was limited due to patient's condition. Patient was found with multiply drug paraphernalia. Upon evaluation patient was tachycardic with heart rate 117, respiratory rate 22 , blood pressure 221/113. Patient was postictal. Laboratory work-up revealed leukocytosis with WBC 17.1, stable hemoglobin and hematocrit. Urinalysis revealed +4 blood, , +4 glucose, +4 protein , no evidence of UTI. Sodium 133, potassium 3.6. BUN 37, creatinine 2.8. Glucose 581. CO2 22, anion gap 11. Stable LFT. Lipase 89. Troponin elevated 0.156. Pro BNP 5115 . EKG revealed sinus tachycardia with right axis deviation, right trium enlargement , and incomplete right bundle-branch block. Urine toxicology screen was positive for amphetamine and benzodiazepines. Serum alcohol, Tylenol, and salicylates levels were all negative. Chest x-ray revealed evidence of congestive heart failure. CT of the head revealed no acute intracranial bleeding, mass-effect or edema. Old left orbital trauma noted. Mild atrophy of the brain. Initial ABG revealed evidence of respiratory acidosis with hypercapnia PCO2 55. Patient started on broad-spectrum antibiotic for possible pneumonia. Patient was started on slow hydration for acute kidney injury and subsequently admitted to stepdown for further management. CONSULTANTS: treasury accountant Dr. Gibbons cardiac electrophysiology Dr. Garcia neurologist Dr. Ybarra jute bag cutting machine operator Dr. Yang pulmonary/exercise equipment specialist ID specialist psychiatrist [place] [employer]RSE: Patient admitted to direct observational unit. environmental air specialist followed. Patient initially had acute hypercapnic respiratory failure. Supplemental oxygen provided as needed to keep pulse oximetry above 92%. Pulmonary toilet provided as needed. ABG was rechecked the next day and hypercapnia resolved. Patient started on empiric antibiotics. Aspiration precaution maintained. Patient started on cautious IV fluid hydration. Volumes were closely monitored. Serial troponin were ordered. DVT prophylaxis provided. Speech Clinician and tile power shear operator followed. Echocardiogram revealed ejection fraction of 50% with no evidence of wall motion abnormality to the extent visualized. Mild left ventricular hypertrophy. Moderately elevated left atrial pressure, grade 2. Right ventricular systolic pressure of 50, consistent with moderate pulmonary hypertension. Pro BNP from 5115 down to 2945. Per treasury accountant , patient had a hypertensive crisis/hypertensive emergency , most likely due to medication noncompliance and triggered by seizure activity. Blood pressure was closely monitored. Patient started on calcium channel margie and on as needed clonidine. Blood pressure was improving. Patient noted to have episode of bradycardia with heart rate dropping to 30. Speech Clinician recommended to avoid beta margie. Bradycardia episode resolved without future recurrence. Neurologist followed. Per neurologist , patient had acute toxic metabolic encephalopathy due to metabolic abnormalities along with polysubstance abuse. Seizure precaution were maintained. Patient started on Keppra. Reinforced compliance with anticonvulsant regimen. Fall precaution maintained. Infectious disease specialist followed. Patient was on antibiotics for possible aspiration pneumonia. Swallow evaluation and follow-up chest x-ray pending . Wire Fence Erector followed. Blood sugar was managed with long-acting Levemir , short acting pre-meal insulin and sliding scale of insulin as needed. Diabetic diet provided. Diabetic teaching provided. Hemoglobin A1c 7.9. Composite Boat Builder followed. Renal parameters and electrolytes were closely monitored. Electrolytes corrected as needed. Kidney ultrasound was ordered along with urine studies . Prior to signing AMA creatinine from 2.8 down to 1.8. Per tile power shear operator, patient had a renal failure prerenal versus renal. Urinalysis revealed proteinuria with +4 protein. Patient likely had diabetic nephropathy. . Psychiatrist seen and evaluated patient . Per psychiatrist , patient had substance use disorder and anxiety disorder. Psychiatric medication regimen was optimized. Patient was counseled on abstinence from street drugs,. Patient became fully awake and alert, and subsequently decided to leave AGAINST MEDICAL ADVICE. The risks and consequences of signing AGAINST MEDICAL ADVICE were discussed with patient in detail. Patient verbalized understanding, nevertheless signed AMA form and left. FINAL DIAGNOSES: Acute hypercapnic respiratory failure- resolved Acute toxic metabolic encephalopathy Hypertensive crisis/hypertensive emergency -improved most likely due to medication accelerated hypertension in patient with polysubstance abuse Bradycardia-resolved Seizure disorder with history of noncompliance with medication Congestive heart failure exacerbation with diastolic dysfunction Elevated troponin, possibly demand ischemia Noncompliance with medication Possible aspiration pneumonia Leukocytosis Substance use disorder Polysubstance abuse/amphetamines, benzodiazepines Acute kidney injury Moderate pulmonary hypertension Diabetes mellitus out of control Proteinuria Diabetic nephropathy Anxiety disorder I have been assigned to dictate discharge summary for this account. I was not involved in the patient's management. Maritza Dupont NP Jun 14, 2019 10:02
== END 2019-06-13 10:49 | disposition left against medical advice (07) | DRG 199 ==
LOC: EDBD 13:32 → EMR 13:45 → EDBEDREQ 15:11 → EDBEDREQSVC 15:11 → 2W 16:36 → EDBEDREQ 17:01 → 2W 19:52
DX: I16.1 Hypertensive emergency (principal); J69.0 Pneumonitis due to inhalation of food and vomit; J96.02 Acute respiratory failure with hypercapnia; J96.01 Acute respiratory failure with hypoxia; G92 Toxic encephalopathy; I50.33 Acute on chronic diastolic (congestive) heart failure; G40.909 Epilepsy, unspecified, not intractable, without status epilepticus; N17.9 Acute kidney failure, unspecified; I24.8 Other forms of acute ischemic heart disease; E11.21 Type 2 diabetes mellitus with diabetic nephropathy; E11.65 Type 2 diabetes mellitus with hyperglycemia; F19.10 Other psychoactive substance abuse, uncomplicated; E86.0 Dehydration; I27.20 Pulmonary hypertension, unspecified; Z53.21 Procedure and treatment not carried out due to patient leaving prior to being seen by health care provider; Z91.14 Patient's other noncompliance with medication regimen; I49.8 Other specified cardiac arrhythmias; I11.0 Hypertensive heart disease with heart failure; F41.9 Anxiety disorder, unspecified; R00.0 Tachycardia, unspecified; I45.10 Unspecified right bundle-branch block
CPT/HCPCS: 36415; 36600; 70450; 71045; 80053; 80156; 80164; 80185; 80299; 80307; 80329; 81003; 82009; 82550; 82553; 82803; 82962; 82977; 83036; 83690; 83735; 83880; 84100; 84300; 84443; 84484; 84550; 85007; 85025; 86140; 87040; 87081; 87181; 89050; 93005; 93306; 96361; 96365; 96368; 96375; 99285; J1815; S5561

== ENCOUNTER 2019-11-22 19:54 | Inpatient (IN) | payer OTHER ==
[~2019-11-22] VITALS: Ht 180.3 cm; Wt 143.3 kg
[2019-11-22] MEDS ORDERED: Nitroglycerin 2% oint pkt TOPIC ONE (20:00)
--- NOTE | 2019-11-22 20:00 | NUR ---
ED Nurse Note: pt presents to ED via EMS arrival RA 28 c/o SOB x 3 days. per pt in the past when this happens, he takes his lasix and the SOB improves but today it did not get any better. pt reports he feels like he is retaining fluids and has been hospitalized in the past for his COPD & CHF. per EMS, pt was at 82% SpO2 on RA so they put him on C-pap and his sat went up to 100%. pt was hypertensive en route at 202/140. blood sugar was 162. pt had audible wheezes en rotue as well but lungs sound clear after c-pap. pt goes to the IN for his care, he does not know who his PCP is Addendum: 11/22/19 at 2031 by [facility] report giving pt 3 doses of nitro en route
[2019-11-22 20:06] LABS: BASOPHILS % (AUTO) 0.9 % (0.0-2.0); EOSINOPHILS % (AUTO) 1.7 % (0.0-3.0); HEMATOCRIT 48.4 % (42.0-52.0); HEMOGLOBIN 15.4 G/DL (14.2-18.0); LYMPHOCYTES % (AUTO) 14.4 % (20.0-45.0); MEAN CORPUSCULAR VOLUME 84 FL (80-99); MONOCYTES % (AUTO) 9.8 % (1.0-10.0); NEUTROPHILS % (AUTO) 73.2 % (45.0-75.0); PLATELET COUNT 290 K/UL (150-450); RED BLOOD COUNT 5.74 M/UL (4.70-6.10); RED CELL DISTRIBUTION WIDTH 14.5 % (11.6-14.8); WHITE BLOOD COUNT 11.9 K/UL (4.8-10.8)
--- NOTE | 2019-11-22 20:10 | NUR ---
ED Nurse Note: pt arrived with a 20 gauge IV in his L hand placed by paramedics en route. it is patent and intact. blood was drawn from this line without complications.
[2019-11-22 20:11] VITALS: BP 202/134
[2019-11-22] MEDS ORDERED: FUROSEMIDE20 M1 ORAL (20:19)
[2019-11-22 20:20] LABS: ANION GAP 10 mmol/L (5-15); BLOOD UREA NITROGEN 35 mg/dL (7-18); CALCIUM 8.5 MG/DL (8.5-10.1); CARBON DIOXIDE 25 MMOL/L (21-32); CHLORIDE 103 MMOL/L (98-107); CREATININE 2.4 MG/DL (0.55-1.30); POTASSIUM 3.7 MMOL/L (3.5-5.1); SODIUM 138 MMOL/L (136-145)
--- NOTE | 2019-11-22 20:20 | NUR ---
ED Nurse Note: pt's BP is 198/108, ERMD notified
[2019-11-22 20:31] LABS: ALANINE AMINOTRANSFERASE 20 U/L (12-78); ALBUMIN 2.6 G/DL (3.4-5.0); ALBUMIN/GLOBULIN RATIO 0.5 (1.0-2.7); ALKALINE PHOSPHATASE 207 U/L (46-116); ASPARTATE AMINO TRANSFERASE 16 U/L (15-37); BILIRUBIN,TOTAL 0.5 MG/DL (0.2-1.0)
--- NOTE | 2019-11-22 20:51 | Emergency Room Report ---
History of Present Illness General Chief Complaint: Dyspnea/Respdistress Source: Patient, EMS Present Illness HPI 59-year-old male history of hypertension, hyperlipidemia, CHF, COPD presents with shortness of breath that started 5 days ago, patient states gradually his Lasix has not been working, he denies any chest pain however he does endorse shortness of breath, patient was reporting that he was taking Lasix which not help, no alleviating factors severity was moderate, constant, patient was brought in by ambulance on CPAP, and in respiratory distress Allergies: Coded Allergies: No Known Allergies (Unverified , 02/24/18) Patient History Past Medical History: see triage record Reviewed Nursing Documentation: PMH: Agreed; PSxH: Agreed Nursing Documentation-PMH Hx Cardiac Problems: Yes - CHF Hx Hypertension: Yes Hx Asthma: Yes Hx COPD: Yes Hx Diabetes: Yes Hx Cancer: No Hx Gastrointestinal Problems: No History Of Psychiatric Problem: Yes Hx Neurological Problems: Yes Hx Seizures: Yes Review of Systems All Other Systems: negative except mentioned in HPI Physical Exam Vital Signs Date Time Temp Pulse Resp B/P (MAP) Pulse Ox O2 Delivery O2 Flow Rate FiO2 11/22/19 19:48 98.8 101 25 202/134 (156) 100 11/22/19 20:07 Bi-Pap 40 Sp02 EP Interpretation: reviewed, normal General Appearance: alert, moderate distress Head: normocephalic, atraumatic Eyes: bilateral eye PERRL, bilateral eye EOMI ENT: uvula midline, moist mucus membranes Neck: supple, thyroid normal, supple/symm/no masses Respiratory: accessory muscle use, crackles, wheezing Cardiovascular #1: normal peripheral pulses, no edema, no gallop, no murmur, tachycardia Gastrointestinal: non tender, soft, no guarding, no rebound Musculoskeletal: normal inspection Neurologic: alert, oriented x3 Psychiatric: mood/affect normal Skin: no rash, warm/dry Procedures Critical Care Time Critical Care Time Given the critical condition in which the patient arrived, the patient was immediately assessed by myself and the nurse, and cardiac monitoring initiated due to the potential for rapid decompensation of the patient's clinical condition. During the course of the patient's stay, I spent a considerable amount of time at the bedside performing serial re-evaluations of the patient's hemodynamic and clinical status because of the recognized potential threat to life or limb in this condition. I then had a chance to review not only all of the available current laboratory and radiographic studies obtained today, but I also reviewed old records available to me at the time. Additionally, any ancillary information available including freight manager records were reviewed. Sequential vital signs were obtained. Critical Care time of 39 minutes was performed exclusive of billable procedures. Medical Decision Making Diagnostic Impression: Primary Impression: Respiratory distress Additional Impressions: Pulmonary edema Qualified Codes: J81.0 - Acute pulmonary edema CHF exacerbation Qualified Codes: I50.9 - Heart failure, unspecified ER Course 59-year-old male presents with acute distress, requiring BiPAP, patient was emergently evaluated, differential diagnosis includes CHF exacerbation, COPD exacerbation, jamila pulmonary edema, flash pulmonary edema Patient given 40 Lasix, patient also given nitroglycerin Patient was given BiPAP, and stabilized, CO2 monitoring was started Blood pressure medications were used to control his hypertensive emergency, 10 mg of hydralazine, 10 mg of labetalol with significant improvement in his blood pressure Patient will be admitted to the stepdown unit given his critical status Patient admitted to Dr. Dawson Laboratory Tests Test 11/22/19 19:56 11/22/19 20:12 White Blood Count 11.9 K/UL (4.8-10.8) H Red Blood Count 5.74 M/UL (4.70-6.10) Hemoglobin 15.4 G/DL (14.2-18.0) Hematocrit 48.4 % (42.0-52.0) Mean Corpuscular Volume 84 FL (80-99) Mean Corpuscular Hemoglobin 26.8 PG (27.0-31.0) L Mean Corpuscular Hemoglobin Concent 31.8 G/DL (32.0-36.0) L Red Cell Distribution Width 14.5 % (11.6-14.8) Platelet Count 290 K/UL (150-450) Mean Platelet Volume 5.5 FL (6.5-10.1) L Neutrophils (%) (Auto) 73.2 % (45.0-75.0) Lymphocytes (%) (Auto) 14.4 % (20.0-45.0) L Monocytes (%) (Auto) 9.8 % (1.0-10.0) Eosinophils (%) (Auto) 1.7 % (0.0-3.0) Basophils (%) (Auto) 0.9 % (0.0-2.0) Prothrombin Time 10.6 SEC (9.30-11.50) Prothrombin Time INR 1.0 (0.9-1.1) PTT 30 SEC (23-33) Sodium Level 138 MMOL/L (136-145) Potassium Level 3.7 MMOL/L (3.5-5.1) Chloride Level 103 MMOL/L (98-107) Carbon Dioxide Level 25 MMOL/L (21-32) Anion Gap 10 mmol/L (5-15) Blood Urea Nitrogen 35 mg/dL (7-18) H Creatinine 2.4 MG/DL (0.55-1.30) H Estimate Glomerular Filtration Rate 33.9 mL/min (>60) Glucose Level 208 MG/DL (74-106) H Calcium Level 8.5 MG/DL (8.5-10.1) Total Bilirubin 0.5 MG/DL (0.2-1.0) Aspartate Amino Transferase (AST) 16 U/L (15-37) Alanine Aminotransferase (ALT) 20 U/L (12-78) Alkaline Phosphatase 207 U/L (46-116) H Troponin I 0.001 ng/mL (0.000-0.056) Pro-B-Type Natriuretic Peptide 8280 pg/mL (0-125) H Total Protein 7.5 G/DL (6.4-8.2) Albumin 2.6 G/DL (3.4-5.0) L Globulin 4.9 g/dL Albumin/Globulin Ratio 0.5 (1.0-2.7) L Lipase 70 U/L (73-393) L Arterial Blood pH 7.358 (7.350-7.450) Arterial Blood Partial Pressure CO2 45.2 mmHg (35.0-45.0) H Arterial Blood Partial Pressure O2 52.4 mmHg (75.0-100.0) L Arterial Blood HCO3 24.8 mmol/L (22.0-26.0) Arterial Blood Oxygen Saturation 85.2 % (95-100) *L Arterial Blood Base Excess -1.0 (-2-2) Ritchie Test Positive EKG Diagnostic Results EKG Time: 19:48 EP Interpretation: Sinus tachycardia, rate 104 QTc 491, right axis deviation no acute ST eleva Rhythm Strip Diag. Results Rhythm Strip Time: 21:19 EP Interpretation: yes Rate: 69 Rhythm: NSR, no PVC's, no ectopy Chest X-Ray Diagnostic Results Chest X-Ray Diagnostic Results : Chest X-Ray Ordered: Yes # of Views/Limited/Complete: 1 View Indication: Shortness of Breath EP Interpretation: Yes Interpretation: other - Pulmonary edema Impression: Other - Pulmonary edema Electronically Signed by: Luke Alvarado MD Last Vital Signs Date Time Temp Pulse Resp B/P (MAP) Pulse Ox O2 Delivery O2 Flow Rate FiO2 11/22/19 20:13 95 22 40 11/22/19 20:11 98.8 202/134 98 11/22/19 20:09 Facial Disposition: ADMITTED INPATIENT Condition: Serious Referrals: [facility],REFERRING (PCP) Luke Alvarado MD Nov 22, 2019 20:50
[2019-11-22] MEDS ORDERED: Labetalol 5mg/ml 20ml vial IV ONE (21:00)
[2019-11-22 21:09] VITALS: BP 167/114
[2019-11-22 21:28] VITALS: BP 128/79
--- NOTE | 2019-11-22 22:20 | NUR ---
ED Nurse Note: report given to LU Samson
[2019-11-22 22:30] VITALS: BP 184/105
--- NOTE | 2019-11-22 22:40 | NUR ---
NURSE NOTES: Received report from LU Mc, pt. brought up from Er- pt. is A/O x's 4- able to make needs known- no signs or symptoms of acute cardiac or respiratory distress noted, engineered wood designer placed- pt. teaching done- and pt. oriented to room, pt. is on 3L NC- sating at 95%- pt. appears to be using his accessory muscles, full body assessment done- skin intact- lower legs 2+ pitting - bilateral lower legs dryness and flakey skin, call light within easy reach, pt. aware to ask for assist, bed in lowest position and safety brakes engaged, side rails up x's3, Lt. hand 20G IV intact and patent, belongings list signed- pt. has $20 bill and would like to keep with him at bedside- does not want to have it locked up, pt. has [employer] cell phone at bedside, safety measures continued, will continue with plan of care. Addendum: 11/23/19 at 0018 by NIKIA BERKOWITZ RN RN pt. states he takes medications at home but does not remember the names.
--- NOTE | 2019-11-22 23:24 | NUR ---
NURSE NOTES: Left message for DR. Dawson, awaiting for admitting orders.
--- NOTE | 2019-11-22 23:29 | NUR ---
NURSE NOTES: Also left message for DR. Winchester for admitting orders- awaiting for callback from doctor.
[2019-11-23] VITALS (7 sets, daily range): BP systolic 156–180; BP diastolic 89–108
--- NOTE | 2019-11-23 00:12 | NUR ---
NURSE NOTES: left 2nd message for DR. Dawson for admitting orders- awaiting for call back from doctor.
--- NOTE | 2019-11-23 00:38 | NUR ---
NURSE NOTES: Received admitting orders from DR. Dawson- will carry out orders.
[2019-11-23] MEDS ORDERED: Zolpidem 5mg tab ORAL PRN (00:45)
[2019-11-23] MEDS ORDERED: HYDROcodone/Acetamin 5/325 tab ORAL PRN ×3 (00:45→06:45)
[2019-11-23] MEDS: HydrALAZINE 50mg tab ORAL PRN ×2 (01:02→08:17)
[2019-11-23] MEDS: NovoLOG Insulin Flexpen SUBQ SCH ×4 (06:25→21:00)
[2019-11-23 07:01] LABS: BASOPHILS % (AUTO) 1.3 % (0.0-2.0); EOSINOPHILS % (AUTO) 1.8 % (0.0-3.0); HEMATOCRIT 49.9 % (42.0-52.0); HEMOGLOBIN 16.1 G/DL (14.2-18.0); LYMPHOCYTES % (AUTO) 17.5 % (20.0-45.0); MEAN CORPUSCULAR VOLUME 85 FL (80-99); MONOCYTES % (AUTO) 8.7 % (1.0-10.0); NEUTROPHILS % (AUTO) 70.7 % (45.0-75.0); PLATELET COUNT 293 K/UL (150-450); RED BLOOD COUNT 5.89 M/UL (4.70-6.10); RED CELL DISTRIBUTION WIDTH 14.6 % (11.6-14.8); WHITE BLOOD COUNT 13.9 K/UL (4.8-10.8)
[2019-11-23 07:04] LABS: ALANINE AMINOTRANSFERASE 19 U/L (12-78); ALBUMIN 2.7 G/DL (3.4-5.0); ALBUMIN/GLOBULIN RATIO 0.5 (1.0-2.7); ALKALINE PHOSPHATASE 210 U/L (46-116); ANION GAP 9 mmol/L (5-15); ASPARTATE AMINO TRANSFERASE 17 U/L (15-37); BILIRUBIN,TOTAL 0.5 MG/DL (0.2-1.0); BLOOD UREA NITROGEN 32 mg/dL (7-18); CALCIUM 8.9 MG/DL (8.5-10.1); CARBON DIOXIDE 28 MMOL/L (21-32); CHLORIDE 101 MMOL/L (98-107); CHOLESTEROL 254 MG/DL (< 200); CREATININE 2.4 MG/DL (0.55-1.30); HDL CHOLESTEROL 49 MG/DL (40-60); PHOSPHORUS 3.7 MG/DL (2.5-4.9); POTASSIUM 3.4 MMOL/L (3.5-5.1); SODIUM 138 MMOL/L (136-145); TRIGLYCERIDES 139 MG/DL (30-150)
--- NOTE | 2019-11-23 07:05 | NUR ---
HAND-OFF: Report given to LU Marsh- pt.remains stable and no signs of distress noted- nurse aware to f/u on abnormal am labs. Addendum: 11/23/19 at 0706 by NIKIA BERKOWITZ RN RN labs still pending.
--- NOTE | 2019-11-23 08:15 | NUR ---
NURSE NOTES: received pt in the bed, awake, alert, oriented, vital signs stable, no SOB, O2 3l via nasal canula, skin warm and dry to touch, intact, no ci chest pain, tolerate diet well, bed in low position, call light within reach.
[2019-11-23] MEDS: HYDROcodone/Acetamin 5/325 tab ORAL PRN ×3 (08:17→23:22)
[2019-11-23] MEDS ORDERED: Aspirin Baby 81mg ORAL SCH (09:00)
--- NOTE | 2019-11-23 11:13 | Consultation ---
Consult Note Consult Note asked to eval for renal failure- Known to me from her previous admission poor historian ER: HPI 59-year-old male history of hypertension, hyperlipidemia, CHF, COPD presents with shortness of breath that started 5 days ago, patient states gradually his Lasix has not been working, he denies any chest pain however he does endorse shortness of breath, patient was reporting that he was taking Lasix which not help, no alleviating factors severity was moderate, constant, patient was brought in by ambulance on CPAP, and in respiratory distress No Known Allergies (Unverified , 02/24/18) Hx Cardiac Problems: Yes - CHF Hx Hypertension: Yes Hx Asthma: Yes Hx COPD: Yes Hx Diabetes: Yes History Of Psychiatric Problem: Yes Hx Neurological Problems: Yes Hx Seizures: Yes examined data reviewed poor historian denies kidney problems . Assessment/Plan Acute Respiratory Distress / CHF Acute encephalopathy / Multi drug abuse Sz Disorder Renal failure pre renal vs Renal CHF exacerbation DM-2, proteinuria/ Diabetic Nephropathy h/o Substance abuse Plan: 2D echo Kidney JYOTSNA Urine studies optimize cardiac and pulmonary state monitor renal parameters per orders Amor Gonzales MD Nov 23, 2019 11:13
[2019-11-23] MEDS ORDERED: Losartan 25mg tab ORAL ONE (11:30)
[2019-11-23] MEDS ORDERED: HydrALAZINE 50mg tab ORAL PRN (11:30)
[2019-11-23] MEDS: Docusate 100mg cap ORAL SCH ×2 (14:02→17:12)
--- NOTE | 2019-11-23 14:27 | History & Physical ---
History and Physical History & Physicial Marquez Dawson MD Nov 23, 2019 14:27
--- NOTE | 2019-11-23 14:37 | Diagnostic Imaging Report ---
Indication: Dyspnea Comparison: 06/11/2019 A single view chest radiograph was obtained. Findings: There is enlargement of the cardiac silhouette with pulmonary vascular redistribution and prominence, hazy vessel margins and the suggestion of interstitial edema consistent with CHF. Left hemidiaphragm is not visualized well but the this was also the case previously. This may be due to breast attenuation. Bones are unremarkable. IMPRESSION: Congestive heart failure
--- NOTE | 2019-11-23 14:51 | NUR ---
NURSE NOTES: dr. Dawson saw pt, K 3.4, dr. Dawson aware.
--- NOTE | 2019-11-23 15:11 | Diagnostic Imaging Report ---
Indication:Elevated Bun and Creatinine. Technique: Grayscale and duplex Doppler imaging of the kidneys performed. Comparison: None Findings: The size, contour, and echogenicity of both kidneys are within normal limits. There is no hydronephrosis.. There are small bilateral renal cysts. The right kidney measures 11.1 cm. in length. The left kidney measures 10.9 cm. in length. The IVC is patent. Urinary bladder is unremarkable. IMPRESSION: Negative ultrasound the kidneys. Small bilateral renal cysts
--- NOTE | 2019-11-23 15:34 | NUR ---
CASE MANAGEMENT: INITIAL REVIEW 59YR OLD MALE BIBA FROM HOME CC: DYSPNEA / RESP DISTRESS SI: CHF EXACERBATION . PULMONARY EDEMA . 98.7 101 25 202/134 100% ON RA BUN 35 CREAT 2.4 BG 208 WBC 11.9 IS: IV HYDRALAZINE X1 LABETALOL X1 IV LASIX X2 NITRO-BID X1 CXRAY \:SW STEP DOWN UNIT CASE MANAGEMENT: REVIEW 11/23/19 SI: CHF EXACERBATION . PULMONARY EDEMA . 97.5 79 20 162/96 99% ON 3L NC BUN 32 CREAT 2.4 BG 150 WBC 13.9 ABG: pCO2 45.2 pO2 52.4 O2 SAT 85.2 IS: K-DUR PO X1 NOVOLOG SQ AC&HS COZAAR PO BID IV LASIX BID ASA PO QD \:SW STEP DOWN UNIT PLAN: US RENAL
--- NOTE | 2019-11-23 17:00 | History and Physical Report ---
DATE OF ADMISSION: 11/22/2019 CHIEF COMPLAINT: Shortness of breath, leg edema. HISTORY OF PRESENT ILLNESS: This is a 59-year-old gentleman with past medical history significant for hypertension, morbid obesity, dyslipidemia, congestive heart failure, COPD, diabetes type 2, seizure disorder, and chronic smoker, who has presented to the emergency room complaining about worsening shortness of breath over the past five days. The patient has got progressively worsened over past several days. He has been taking his Lasix and has not been working. He denies any chest pain. However, he is complaining about shortness of air mostly on exertion. The patients reported that he was taking Lasix, but refractory to the treatment. Shortly after initial evaluation in the emergency room, the patient was admitted to the hospital with acute CHF exacerbation with fluid overload with acute hypoxemic respiratory failure on a BiPAP. PAST MEDICAL HISTORY/PAST SURGICAL HISTORY: As above, history of hypertension, asthma, COPD, and diabetes type 2. Denies any history of stroke. History of seizure disorder, morbid obesity, coronary artery disease, and chronic smoker. MEDICATIONS AT HOME: Please refer to medication reconciliation. ALLERGIES: No known drug allergies. SOCIAL HISTORY: The patient smokes half a pack of cigarettes over 30 years smoker. Socially drinks. Presently unemployed. Used to work as a flatbed company driver, however, after the seizure his license was taken away. FAMILY HISTORY: Noncontributory. REVIEW OF SYSTEMS: Mostly as above. Denies any dysuria, frequency, or hematuria. Complained of pedal edema. Complained of shortness of breath. Denies any hemoptysis or hematochezia. Denies any bright red blood per rectum. PHYSICAL EXAMINATION: VITAL SIGNS: On admission, temperature 98.8, pulse 101, respirations 25, and blood pressure 202/134. GENERAL: The patient is awake and responsive, in no acute distress on O2 oxygen via nasal cannula. HEAD AND NECK: Pupils are equal and reactive to light. Extraocular movements intact. Neck was supple. Positive JVD. LUNGS: Good air entry. No wheezes or rhonchi. Decreased air in bases. HEART: S1, S2. Distant heart sounds. No murmur or gallops. ABDOMEN: Soft, nondistended, and nontender. Morbidly obese. EXTREMITIES: +3 edema in bilateral lower extremities. NEUROLOGIC: Cranial nerves II through XII grossly intact. Motor is 5/5 in all extremities. Gait is intact. LABORATORY DATA: On admission from the ER is significant for WBC of 11, hemoglobin 15, hematocrit 48, and platelets 290,000. Sodium 138, potassium 3.7, chloride 103, bicarb 25, BUN 35, creatinine 2.4. GFR is 33. Glucose is 208. Alkaline phosphatase 207. First troponin 0.01. ProBNP of 8280. Albumin is 2.6. Lipase is 70. The patient's total cholesterol is 254. LDL is 157. PT of 10, INR 1.0, PTT of 30. ABG, pH of 7.35, pCO2 of 45, pO2 of 52, saturating 82%. Chest x-ray, not found yet. The patient's EKG noted to be sinus tachycardia with ventricular rate of 104, biatrial enlargement, right superior axis deviation pulmonary pattern, incomplete right bundle-branch block, right ventricular hypertrophy. No ST elevation was identified. ASSESSMENT: 1. Acute congestive heart failure exacerbation on chronic with possible decreased ejection fraction. 2. Diabetes type 2. 3. Morbid obesity. 4. Chronic kidney disease. 5. Coronary artery disease. 6. Hypertension. 7. Seizure disorder. 8. Chronic obstructive pulmonary disease exacerbation. PLAN: 1. Admit the patient to [facility]. 2. We will try to wean off the BiPAP. 3. We will start the patient on Lasix IV. 4. Monitor blood pressure closely. 5. Monitor blood glucose level closely. 6. Code status is Full Code. 7. DVT prophylaxis is heparin subcutaneous. 8. We will follow up with 2D echo and the laboratory in the morning. Marquez Dawson M.D. DR: JILLIAN JOB#: [id number] CC:
--- NOTE | 2019-11-23 19:16 | NUR ---
HAND-OFF: Report given to JIMMY LEIGH, NO DISTRESS NOTED.
--- NOTE | 2019-11-23 19:26 | NUR ---
NURSE NOTES: Received patient from Maxine Marsh RN. patient is observed sleeping in chair, AO X3, denies pain at this time. patient is on 3 L O2 via NC, tolerating well. no s/sx of respiratory distress noted at this time. freight engineer shows SR with current heart rate of 78, no s/sx of acute cardiac distress noted at this time. urinal at bedside. Left hand 22 g IV site noted, patent and intact; asymptomatic. bed is in lowest position and locked, patient able to ambulate; reminded patient to use call light for assistance, call light within reach. will continue to monitor.
[2019-11-23] MEDS ORDERED: Tamsulosin 0.4mg cap ORAL SCH (21:00)
[2019-11-23] MEDS ORDERED: Losartan 50mg tab ORAL SCH (21:00)
[2019-11-24] VITALS: BP 150/91
--- NOTE | 2019-11-24 02:21 | NUR ---
TRANSFER TO FLOOR: Patient transferred to Telemetry 2E, room 221-1, per MD order. Report given to LU Light. Belongings reviewed with patient and RN at bedside. Belongings remain at bedside. Medications given to LU Light. Patient is in stable condition.
--- NOTE | 2019-11-24 02:22 | NUR ---
NURSE NOTES: Received pt from LU Carlton. Pt is awake and resting in bed in no acute distress, on 3L nasal cannula. Bed locked in lowest position, HOB elevated, bed alarm on, call light within reach. Belongings list verified with RN at patient bedside. Will continue with plan of care.
[2019-11-24] MEDS ORDERED: HydrALAZINE 50mg tab ORAL PRN (02:30)
[2019-11-24] MEDS: HYDROcodone/Acetamin 5/325 tab ORAL PRN ×2 (05:50→22:07)
[2019-11-24] MEDS: NovoLOG Insulin Flexpen SUBQ SCH ×4 (06:02→21:58)
--- NOTE | 2019-11-24 07:28 | NUR ---
HAND-OFF: Report given to LU Thibodeaux. Endorsed plan of care.
[2019-11-24 07:35] LABS: BASOPHILS % (AUTO) 0.7 % (0.0-2.0); HEMATOCRIT 49.3 % (42.0-52.0); HEMOGLOBIN 15.8 G/DL (14.2-18.0); LYMPHOCYTES % (AUTO) 14.4 % (20.0-45.0); MEAN CORPUSCULAR VOLUME 85 FL (80-99); MONOCYTES % (AUTO) 10.8 % (1.0-10.0); NEUTROPHILS % (AUTO) 71.1 % (45.0-75.0); PLATELET COUNT 308 K/UL (150-450); RED BLOOD COUNT 5.81 M/UL (4.70-6.10); WHITE BLOOD COUNT 12.9 K/UL (4.8-10.8)
[2019-11-24 07:49] LABS: ALANINE AMINOTRANSFERASE 18 U/L (12-78); ALBUMIN 2.4 G/DL (3.4-5.0); ALBUMIN/GLOBULIN RATIO 0.5 (1.0-2.7); ALKALINE PHOSPHATASE 182 U/L (46-116); ANION GAP 6 mmol/L (5-15); ASPARTATE AMINO TRANSFERASE 16 U/L (15-37); BILIRUBIN,TOTAL 0.7 MG/DL (0.2-1.0); BLOOD UREA NITROGEN 35 mg/dL (7-18); CALCIUM 8.6 MG/DL (8.5-10.1); CARBON DIOXIDE 30 MMOL/L (21-32); CHLORIDE 101 MMOL/L (98-107); CREATININE 2.3 MG/DL (0.55-1.30); PHOSPHORUS 4.3 MG/DL (2.5-4.9); POTASSIUM 3.7 MMOL/L (3.5-5.1); SODIUM 137 MMOL/L (136-145)
[2019-11-24 08:13] VITALS: BP 138/81
[2019-11-24] MEDS: Losartan 50mg tab ORAL SCH ×2 (08:56→21:59)
[2019-11-24] MEDS: Aspirin Baby 81mg ORAL SCH (08:56)
[2019-11-24] MEDS: Docusate 100mg cap ORAL SCH ×3 (08:56→17:10)
--- NOTE | 2019-11-24 10:17 | Diagnostic Imaging Report ---
EXAM: XR Chest, 1 View CLINICAL HISTORY: SOB TECHNIQUE: Frontal view of the chest. COMPARISON: No relevant prior studies available. FINDINGS: Lungs: Central vascular congestion. Interstitial prominence. Left lung base atelectasis/airspace disease. Pleural space: Query small left pleural effusion. No pneumothorax. Heart: Cardiomegaly. Mediastinum: Unremarkable. Bones/joints: Unremarkable. IMPRESSION: Central vascular congestion. Interstitial prominence. Left lung base atelectasis/airspace disease. Query small left pleural effusion. Maybe mild CHF or pneumonitis
[2019-11-24 11:45] VITALS: BP 138/99
--- NOTE | 2019-11-24 12:59 | Nephrology Progress Note ---
Assessment/Plan Problem List: (1) Renal failure (ARF), acute on chronic (2) Pulmonary edema (3) Substance abuse Assessment: amphetamin (4) Obesity Assessment Acute Respiratory Distress / CHF Acute encephalopathy / Multi drug abuse Sz Disorder Renal failure pre renal vs Renal CHF exacerbation DM-2, proteinuria/ Diabetic Nephropathy h/o Substance abuse Plan adjust BP meds- After load reduction 2D echo Kidney JYOTSNA Urine studies optimize cardiac and pulmonary state monitor renal parameters per orders Subjective ROS Limited/Unobtainable: No Constitutional: Reports: malaise, weakness Objective Objective Last 24 Hour Vital Signs Date Time Temp Pulse Resp B/P (MAP) Pulse Ox O2 Delivery O2 Flow Rate FiO2 11/24/19 12:38 3.0 11/24/19 11:45 97.9 89 16 138/99 (112) 93 11/24/19 09:32 Nasal Cannula 3.0 11/24/19 09:32 3.0 11/24/19 08:56 138/81 11/24/19 08:56 102 138/81 11/24/19 08:13 98.1 102 16 138/81 (100) 91 11/24/19 08:12 97 Nasal Cannula 2.0 28 11/24/19 08:00 95 11/24/19 04:00 93 11/24/19 04:00 93 11/24/19 04:00 3.0 11/24/19 00:00 91 11/24/19 00:00 98.2 90 24 150/91 (110) 96 11/24/19 00:00 Nasal Cannula 3.0 11/23/19 23:21 165/100 11/23/19 21:14 86 166/98 11/23/19 21:13 166/98 11/23/19 20:00 78 11/23/19 20:00 Nasal Cannula 3.0 11/23/19 20:00 3.0 11/23/19 20:00 98.1 86 22 166/98 (120) 100 11/23/19 16:57 97.5 11/23/19 16:00 97.5 79 20 162/96 (118) 99 11/23/19 16:00 82 11/23/19 16:00 Nasal Cannula 3.0 11/23/19 16:00 3.0 Intake and Output 11/23/19 11/24/19 19:00 07:00 Intake Total 480 ml 1020 ml Output Total 1600 ml 1200 ml Balance -1120 ml -180 ml Intake Oral 480 ml 1020 ml Output Urine Total 1600 ml 1200 ml # Voids 3 2 # Bowel Movements 3 Laboratory Tests 11/23/19 14:30: Urine Opiates Screen Negative, Urine Barbiturates Screen Negative, Phencyclidine (PCP) Screen Negative, Urine Amphetamines Screen PositiveH, Urine Benzodiazepines Screen Negative, Urine Cocaine Screen Negative, Urine Marijuana (THC) Screen Negative 11/24/19 07:00: White Blood Count 12.9H, Red Blood Count 5.81, Hemoglobin 15.8, Hematocrit 49.3 , Mean Corpuscular Volume 85, Mean Corpuscular Hemoglobin 27.3, Mean Corpuscular Hemoglobin Concent 32.1, Red Cell Distribution Width 15.0H, Platelet Count 308, Mean Platelet Volume 6.0L, Neutrophils (%) (Auto) 71.1, Lymphocytes (%) (Auto) 14.4L, Monocytes (%) (Auto) 10.8H, Eosinophils (%) (Auto ) 3.0, Basophils (%) (Auto) 0.7, Prothrombin Time 10.4, Prothromb Time International Ratio 1.0, Activated Partial Thromboplast Time 30, Sodium Level 137, Potassium Level 3.7, Chloride Level 101, Carbon Dioxide Level 30, Anion Gap 6, Blood Urea Nitrogen 35H, Creatinine 2.3H, Estimat Glomerular Filtration Rate 35.8, Glucose Level 123H, Calcium Level 8.6, Phosphorus Level 4.3, Magnesium Level 2.0, Total Bilirubin 0.7, Aspartate Amino Transf (AST/SGOT) 16, Alanine Aminotransferase (ALT/SGPT) 18, Alkaline Phosphatase 182H, Troponin I 0.000, Total Protein 7.4, Albumin 2.4L, Globulin 5.0, Albumin/Globulin Ratio 0.5L, Thyroid Stimulating Hormone (TSH) 0.855 Height (Feet): 5 Height (Inches): 11.00 Weight (Pounds): 316 General Appearance: mild distress Cardiovascular: tachycardia Respiratory/Chest: decreased breath sounds Abdomen: distended Amor Gonzales MD Nov 24, 2019 12:59
[2019-11-24] MEDS ORDERED: Guaifenesin/DM 10ml syrup ORAL PRN (13:15)
[2019-11-24] MEDS ORDERED: Albuterol/Ipratropium 3ml neb INH PRN (13:15)
--- NOTE | 2019-11-24 13:16 | Internal Med Progress Note ---
Subjective Physician Name Marquez Dawson Attending Physician Marquez Dawson MD Current Medications Medications (Trade) Dose Ordered Sig/Igor Route PRN Reason Start Time Stop Time Status Last Admin Dose Admin Acetaminophen (Tylenol) 650 mg Q6H PRN ORAL Mild Pain/Temp > 100.5 11/24/19 02:30 12/23/19 02:29 Acetaminophen/ Hydrocodone Bitart ([place] 5/325) 1 tab Q6H PRN ORAL Moderate Pain (Pain Scale 4-6) 11/24/19 02:30 11/30/19 02:29 11/24/19 05:50 Aspirin (ASA) 81 mg DAILY ORAL 11/24/19 09:00 12/23/19 08:59 11/24/19 08:56 Carvedilol (Coreg) 6.25 mg EVERY 12 HOURS ORAL 11/24/19 21:00 12/23/19 08:59 Dextrose (Dextrose 50%) 25 ml Q30M PRN IV Hypoglycemia 11/24/19 02:45 12/23/19 00:44 Dextrose (Dextrose 50%) 50 ml Q30M PRN IV Hypoglycemia 11/24/19 02:45 12/23/19 00:44 Docusate Sodium (Colace) 100 mg THREE TIMES A DAY ORAL 11/24/19 09:00 12/23/19 12:59 11/24/19 12:12 Furosemide (Lasix) 40 mg BID IV 11/24/19 09:00 12/23/19 08:59 11/24/19 08:55 Hydralazine HCl (Apresoline) 25 mg Q4H PRN ORAL SBP>160 11/24/19 02:30 12/23/19 02:29 Insulin Aspart (NovoLOG) BEFORE MEALS AND HS SUBQ 11/24/19 06:30 12/23/19 06:29 11/24/19 12:15 Losartan Potassium (Cozaar) 50 mg EVERY 12 HOURS ORAL 11/24/19 09:00 12/23/19 20:59 11/24/19 08:56 Ondansetron HCl (Zofran) 4 mg Q4H PRN IVP Nausea & Vomiting 11/24/19 02:30 12/23/19 02:29 Pantoprazole (Protonix) 40 mg EVERY 12 HOURS ORAL 11/24/19 09:00 12/23/19 20:59 11/24/19 08:56 Tamsulosin HCl (Flomax) 0.4 mg BEDTIME ORAL 11/24/19 21:00 12/23/19 20:59 Zolpidem Tartrate (Ambien) 5 mg QHS PRN ORAL Insomnia 11/24/19 21:00 11/30/19 00:44 Allergies: Coded Allergies: No Known Allergies (Unverified , 02/24/18) Subjective awake, alert, responsive, No CP, less SOB, No N / V, Urine drug screen: Amphetamine Objective Last Vital Signs Date Time Temp Pulse Resp B/P (MAP) Pulse Ox O2 Delivery O2 Flow Rate FiO2 11/24/19 12:38 3.0 11/24/19 12:00 84 11/24/19 11:45 97.9 16 138/99 (112) 93 11/24/19 09:32 Nasal Cannula 11/24/19 08:12 28 Laboratory Tests Test 11/23/19 14:30 11/24/19 07:00 Urine Opiates Screen Negative (NEGATIVE) Urine Barbiturates Screen Negative (NEGATIVE) Phencyclidine (PCP) Screen Negative (NEGATIVE) Urine Amphetamines Screen Positive (NEGATIVE) H Urine Benzodiazepines Screen Negative (NEGATIVE) Urine Cocaine Screen Negative (NEGATIVE) Urine Marijuana (THC) Screen Negative (NEGATIVE) White Blood Count 12.9 K/UL (4.8-10.8) H Red Blood Count 5.81 M/UL (4.70-6.10) Hemoglobin 15.8 G/DL (14.2-18.0) Hematocrit 49.3 % (42.0-52.0) Mean Corpuscular Volume 85 FL (80-99) Mean Corpuscular Hemoglobin 27.3 PG (27.0-31.0) Mean Corpuscular Hemoglobin Concent 32.1 G/DL (32.0-36.0) Red Cell Distribution Width 15.0 % (11.6-14.8) H Platelet Count 308 K/UL (150-450) Mean Platelet Volume 6.0 FL (6.5-10.1) L Neutrophils (%) (Auto) 71.1 % (45.0-75.0) Lymphocytes (%) (Auto) 14.4 % (20.0-45.0) L Monocytes (%) (Auto) 10.8 % (1.0-10.0) H Eosinophils (%) (Auto) 3.0 % (0.0-3.0) Basophils (%) (Auto) 0.7 % (0.0-2.0) Prothrombin Time 10.4 SEC (9.30-11.50) Prothromb Time International Ratio 1.0 (0.9-1.1) Activated Partial Thromboplast Time 30 SEC (23-33) Sodium Level 137 MMOL/L (136-145) Potassium Level 3.7 MMOL/L (3.5-5.1) Chloride Level 101 MMOL/L (98-107) Carbon Dioxide Level 30 MMOL/L (21-32) Anion Gap 6 mmol/L (5-15) Blood Urea Nitrogen 35 mg/dL (7-18) H Creatinine 2.3 MG/DL (0.55-1.30) H Estimat Glomerular Filtration Rate 35.8 mL/min (>60) Glucose Level 123 MG/DL (74-106) H Calcium Level 8.6 MG/DL (8.5-10.1) Phosphorus Level 4.3 MG/DL (2.5-4.9) Magnesium Level 2.0 MG/DL (1.8-2.4) Total Bilirubin 0.7 MG/DL (0.2-1.0) Aspartate Amino Transf (AST/SGOT) 16 U/L (15-37) Alanine Aminotransferase (ALT/SGPT) 18 U/L (12-78) Alkaline Phosphatase 182 U/L (46-116) H Troponin I 0.000 ng/mL (0.000-0.056) Total Protein 7.4 G/DL (6.4-8.2) Albumin 2.4 G/DL (3.4-5.0) L Globulin 5.0 g/dL Albumin/Globulin Ratio 0.5 (1.0-2.7) L Thyroid Stimulating Hormone (TSH) 0.855 uiU/mL (0.358-3.740) Intake and Output 11/23/19 11/24/19 19:00 07:00 Intake Total 480 ml 1020 ml Output Total 1600 ml 1200 ml Balance -1120 ml -180 ml Intake Oral 480 ml 1020 ml Output Urine Total 1600 ml 1200 ml # Voids 3 2 # Bowel Movements 3 Objective GENERAL: The patient is awake and responsive, in no acute distress on O2 oxygen via nasal cannula. HEAD AND NECK: Pupils are equal and reactive to light. Extraocular movements intact. Neck was supple. Positive JVD. LUNGS: Good air entry. + Expiratory wheezes, No rhonchi. Decreased air in bases. HEART: S1, S2. Distant heart sounds. No murmur or gallops. ABDOMEN: Soft, nondistended, and nontender. Morbidly obese. EXTREMITIES: +2 edema in bilateral lower extremities. NEUROLOGIC: Cranial nerves II through XII grossly intact. Motor is 5/5 in all extremities. Gait is intact. Assessment/Plan Assessment/Plan ASSESSMENT: 1. Acute congestive heart failure exacerbation on chronic with possible decreased ejection fraction. 2. Diabetes type 2. 3. Morbid obesity. 4. Chronic kidney disease. 5. Coronary artery disease. 6. Hypertension. 7. Seizure disorder. 8. Chronic obstructive pulmonary disease exacerbation. 9. Amphetamine abuse PLAN: 1. In Telemetry 2. Start Neb Tx. 3. On Lasix IV. 4. Monitor blood pressure closely. 5. Monitor blood glucose level closely. 6. Code status: Full Code. 7. DVT prophylaxis: heparin subcutaneous. 8. Monitor laboratory in the morning. Marquez Dawson MD Nov 24, 2019 13:16
[2019-11-24] MEDS: Albuterol/Ipratropium 3ml neb INH SCH ×2 (15:31→23:00)
[2019-11-24 16:20] VITALS: BP 127/95
--- NOTE | 2019-11-24 18:57 | NUR ---
vital signs stable during AM shift, no c/o pain,call light with in reach, bed at lowest position, rails up x 2. iv intact and patent. report given to Mary Ann LEIGH.
--- NOTE | 2019-11-24 19:23 | NUR ---
NURSE NOTES: Received pt from LU Thibodeaux. pt is awake and resting in bed, in no acute distress. Nasal cannula on 5L sat at 97%. Iv site intact and patent. Bed locked in lowest position, bed alarm on, call light within reach. Will continue with plan of care.
[2019-11-24 20:00] VITALS: BP 161/68
[2019-11-24] MEDS ORDERED: Tamsulosin 0.4mg cap ORAL SCH (21:00)
[2019-11-24] MEDS ORDERED: Zolpidem 5mg tab ORAL PRN (21:00)
[2019-11-24] MEDS: Carvedilol 6.25mg Tab ORAL SCH (22:00)
[2019-11-25 04:00] VITALS: BP 142/85
[2019-11-25] MEDS: NovoLOG Insulin Flexpen SUBQ SCH ×2 (06:13→11:55)
--- NOTE | 2019-11-25 07:00 | NUR ---
HAND-OFF: Report given to LU Morrison. Endorsed plan of care.
[2019-11-25 07:21] LABS: ANION GAP 3 mmol/L (5-15); BLOOD UREA NITROGEN 33 mg/dL (7-18); CALCIUM 8.8 MG/DL (8.5-10.1); CARBON DIOXIDE 33 MMOL/L (21-32); CHLORIDE 101 MMOL/L (98-107); CREATININE 2.3 MG/DL (0.55-1.30); POTASSIUM 3.8 MMOL/L (3.5-5.1); SODIUM 137 MMOL/L (136-145)
--- NOTE | 2019-11-25 07:26 | NUR ---
NURSE NOTES: Pt in chair, eating breakfast, pt Ox4 calm and cooperative, IV intact, pt has O2 at 4L NC, pt is able to ambulated with steady gait, call light at bedside, pt makes needs known, no s/s of distress or sob, pt denies pain
[2019-11-25 08:00] VITALS: BP 159/95
[2019-11-25] MEDS: Albuterol/Ipratropium 3ml neb INH SCH (08:24)
--- NOTE | 2019-11-25 09:30 | NUR ---
PT EVALUATION NOTE Patient seen for initial evaluation. Patient presents with generalized weakness which affects patient's ability to perform mobility tasks. Patient able to perform transfers with supervision however declined ambulation due to not feeling well. Patient will benefit from skilled inpatient PT intervention to address strength and endurance for improved level of functional mobility and activity tolerance including stair training as patient lives in second floor apartment without elevator access, and education in proper breathing techniques. Recommend discharge home once medically cleared by MD. No DME needs identified at this time. Addendum: 11/25/19 at 1237 by ELVI SCHULZ PT Amended: Links added.
[2019-11-25] MEDS: Losartan 50mg tab ORAL SCH (09:41)
[2019-11-25] MEDS: Aspirin Baby 81mg ORAL SCH (09:41)
[2019-11-25 09:42] VITALS: BP 159/95
[2019-11-25] MEDS: Carvedilol 6.25mg Tab ORAL SCH (09:42)
[2019-11-25] MEDS: Docusate 100mg cap ORAL SCH ×2 (09:42→13:24)
--- NOTE | 2019-11-25 11:03 | NUR ---
CASE MANAGEMENT: REVIEW 11/24/19 SI: CHF EXACERBATION . PULMONARY EDEMA . 98.0 92 15 127/95 93% ON 3L NC WBC 12.9 BUN 35 CREAT 2.3 BG 123 ALK PHOS 182 IS: IV LASIX BID COREG PO BID COZAAR PO BID HYDRALAZINE Q4/PRN NOVOLOG SQ AC&HS ALBUTEROL INH Q8HR ASA PO QD \:2E TELE UNIT CASE MANAGEMENT: REVIEW 11/25/19 SI: CHF EXACERBATION . PULMONARY EDEMA . SM LEFT PLEURAL EFFUSION 98.1 81 18 142/85 94% ON 4L NC BUN 33 CREAT 2.3 BG 133 IS: IV LASIX BID COREG PO BID COZAAR PO BID HYDRALAZINE Q4/PRN NOVOLOG SQ AC&HS ALBUTEROL INH Q8HR ASA PO QD \:2E TELE UNIT PLAN: CONT IV LASIX CONT BREATHING TREATMENT
--- NOTE | 2019-11-25 11:08 | NUR ---
RD ASSESSMENT & RECOMMENDATIONS SEE CARE ACTIVITY FOR COMPLETE ASSESSMENT DAILY ESTIMATED NEEDS: Needs based on Obesity, DM, cardiac/ 94.5kg abw 20-22 kcals/kg 5323-8522 total kcals 1-1.3 g protein/kg 95-122 g total protein Per MD- CHF dx, on Lasix. mL/kg total fluid mLs NUTRITION DIAGNOSIS: Altered nutrition related lab values R/T diabetes, renal dysfuction, CHF, altered lipid metabolism as evidenced by elev A1C of 7.4, POC glu (154 123 150 173), elev BNP (8280), elev cholesterol (254), elev LDL (157). CURRENT DIET:CARDIAC, CCHO MED PO DIET RECOMMENDATIONS: maintain CARDIAC, CCHO MED ADDITIONAL RECOMMENDATIONS: * Daily standing wt monitoring for accuracy: CHF dx * Monitor lytes daily w/ Lasix, replete as needed * Consider lipid lowering agent for elev Cholesterol + LDL
--- NOTE | 2019-11-25 12:07 | Nephrology Progress Note ---
Assessment/Plan Problem List: (1) Renal failure (ARF), acute on chronic (2) Pulmonary edema (3) Substance abuse Assessment: amphetamin (4) Obesity Assessment Acute Respiratory Distress / CHF Acute encephalopathy / Multi drug abuse Sz Disorder Renal failure pre renal vs Renal CHF exacerbation DM-2, proteinuria/ Diabetic Nephropathy h/o Substance abuse Plan adjust BP meds- After load reduction 2D echo Kidney JYOTSNA Urine studies optimize cardiac and pulmonary state monitor renal parameters per orders Subjective ROS Limited/Unobtainable: No Constitutional: Reports: malaise, weakness Objective Objective Last 24 Hour Vital Signs Date Time Temp Pulse Resp B/P (MAP) Pulse Ox O2 Delivery O2 Flow Rate FiO2 11/25/19 09:42 83 159/95 11/25/19 09:41 159/95 11/25/19 08:47 Nasal Cannula 4.0 11/25/19 08:24 98 Nasal Cannula 2.0 28 11/25/19 08:24 83 20 99 Nasal Cannula 2.0 28 85 18 98 11/25/19 08:04 4.0 11/25/19 08:00 98.1 19 159/95 (116) 98 11/25/19 07:42 84 11/25/19 04:50 85 11/25/19 04:00 98.1 81 18 142/85 (104) 94 11/25/19 04:00 4.0 11/25/19 00:00 4.0 11/24/19 23:00 84 20 99 Room Air 21 83 20 96 11/24/19 22:00 89 155/69 11/24/19 21:59 155/69 11/24/19 21:00 Nasal Cannula 3.0 11/24/19 20:21 167/76 11/24/19 20:00 4.0 11/24/19 20:00 87 11/24/19 20:00 98.0 87 18 161/68 (99) 98 11/24/19 19:00 98 Room Air 21 11/24/19 16:21 102 11/24/19 16:20 3.0 11/24/19 16:20 98.0 92 15 127/95 (106) 93 11/24/19 15:42 86 22 99 Room Air 21 83 22 94 11/24/19 12:38 3.0 Intake and Output 11/24/19 11/25/19 19:00 07:00 Intake Total 1000 ml Output Total 2000 ml Balance -2000 ml 1000 ml Intake Oral 1000 ml Output Urine Total 2000 ml # Voids 4 Current Medications Medications (Trade) Dose Ordered Sig/Igor Route PRN Reason Start Time Stop Time Status Last Admin Dose Admin Acetaminophen (Tylenol) 650 mg Q6H PRN ORAL Mild Pain/Temp > 100.5 11/24/19 02:30 12/23/19 02:29 Acetaminophen/ Hydrocodone Bitart ([place] 5/325) 1 tab Q6H PRN ORAL Moderate Pain (Pain Scale 4-6) 11/24/19 02:30 11/30/19 02:29 11/24/19 22:07 Albuterol/ Ipratropium (Albuterol/ Ipratropium) 3 ml Q4H PRN INH Shortness of Breath 11/24/19 13:15 11/29/19 13:14 Albuterol/ Ipratropium (Albuterol/ Ipratropium) 3 ml Q8HRT INH 11/24/19 15:00 11/29/19 14:59 11/25/19 08:24 Aspirin (ASA) 81 mg DAILY ORAL 11/24/19 09:00 12/23/19 08:59 11/25/19 09:41 Carvedilol (Coreg) 6.25 mg EVERY 12 HOURS ORAL 11/24/19 21:00 12/23/19 08:59 11/25/19 09:42 Dextrose (Dextrose 50%) 25 ml Q30M PRN IV Hypoglycemia 11/24/19 02:45 12/23/19 00:44 Dextrose (Dextrose 50%) 50 ml Q30M PRN IV Hypoglycemia 11/24/19 02:45 12/23/19 00:44 Docusate Sodium (Colace) 100 mg THREE TIMES A DAY ORAL 11/24/19 09:00 12/23/19 12:59 11/25/19 09:42 Furosemide (Lasix) 40 mg BID IV 11/24/19 09:00 12/23/19 08:59 11/25/19 09:43 Guaifenesin/ Dextromethorphan (Robitussin DM Syrup) 10 ml Q4H PRN ORAL For Cough 11/24/19 13:15 12/24/19 13:14 Hydralazine HCl (Apresoline) 25 mg Q4H PRN ORAL SBP>160 11/24/19 02:30 12/23/19 02:29 11/24/19 20:21 Insulin Aspart (NovoLOG) BEFORE MEALS AND HS SUBQ 11/24/19 06:30 12/23/19 06:29 11/25/19 06:13 Losartan Potassium (Cozaar) 50 mg EVERY 12 HOURS ORAL 11/24/19 09:00 12/23/19 20:59 11/25/19 09:41 Ondansetron HCl (Zofran) 4 mg Q4H PRN IVP Nausea & Vomiting 11/24/19 02:30 12/23/19 02:29 Pantoprazole (Protonix) 40 mg EVERY 12 HOURS ORAL 11/24/19 09:00 12/23/19 20:59 11/25/19 09:42 Tamsulosin HCl (Flomax) 0.4 mg BEDTIME ORAL 11/24/19 21:00 12/23/19 20:59 11/24/19 21:59 Zolpidem Tartrate (Ambien) 5 mg QHS PRN ORAL Insomnia 11/24/19 21:00 11/30/19 00:44 Laboratory Tests 11/25/19 06:33: Sodium Level 137, Potassium Level 3.8, Chloride Level 101, Carbon Dioxide Level 33H, Anion Gap 3L, Blood Urea Nitrogen 33H, Creatinine 2.3H, Estimat Glomerular Filtration Rate 35.8, Glucose Level 133H, Calcium Level 8.8 Height (Feet): 5 Height (Inches): 11.00 Weight (Pounds): 316 General Appearance: no apparent distress Cardiovascular: normal rate Respiratory/Chest: decreased breath sounds Abdomen: distended Amor Gonzales MD Nov 25, 2019 12:07
--- NOTE | 2019-11-25 14:22 | NUR ---
*-* INSURANCE *-* ALL CLINICALS AND REVIEWS HAVE BEEN FAXED TO: [facility] NO ACCOUNTING ANALYST ASSIGNED AT THIS TIME PLEASE FAX THE REVIEW/CLINICAL P- [phone] F- [phone]....REVIEW/CLINICAL
--- NOTE | 2019-11-25 15:28 | Internal Med Progress Note ---
Subjective Physician Name Marquez Dawson Attending Physician Marquez Dawson MD Current Medications Medications (Trade) Dose Ordered Sig/Igor Route PRN Reason Start Time Stop Time Status Last Admin Dose Admin Acetaminophen (Tylenol) 650 mg Q6H PRN ORAL Mild Pain/Temp > 100.5 11/24/19 02:30 12/23/19 02:29 Acetaminophen/ Hydrocodone Bitart ([place] 5/325) 1 tab Q6H PRN ORAL Moderate Pain (Pain Scale 4-6) 11/24/19 02:30 11/30/19 02:29 11/24/19 22:07 Albuterol/ Ipratropium (Albuterol/ Ipratropium) 3 ml Q4H PRN INH Shortness of Breath 11/24/19 13:15 11/29/19 13:14 Albuterol/ Ipratropium (Albuterol/ Ipratropium) 3 ml Q8HRT INH 11/24/19 15:00 11/29/19 14:59 11/25/19 08:24 Aspirin (ASA) 81 mg DAILY ORAL 11/24/19 09:00 12/23/19 08:59 11/25/19 09:41 Carvedilol (Coreg) 12.5 mg EVERY 12 HOURS ORAL 11/25/19 21:00 12/23/19 08:59 Dextrose (Dextrose 50%) 25 ml Q30M PRN IV Hypoglycemia 11/24/19 02:45 12/23/19 00:44 Dextrose (Dextrose 50%) 50 ml Q30M PRN IV Hypoglycemia 11/24/19 02:45 12/23/19 00:44 Docusate Sodium (Colace) 100 mg THREE TIMES A DAY ORAL 11/24/19 09:00 12/23/19 12:59 11/25/19 13:24 Furosemide (Lasix) 40 mg BID IV 11/24/19 09:00 12/23/19 08:59 11/25/19 09:43 Guaifenesin/ Dextromethorphan (Robitussin DM Syrup) 10 ml Q4H PRN ORAL For Cough 11/24/19 13:15 12/24/19 13:14 Hydralazine HCl (Apresoline) 25 mg Q4H PRN ORAL SBP>160 11/24/19 02:30 12/23/19 02:29 11/24/19 20:21 Insulin Aspart (NovoLOG) BEFORE MEALS AND HS SUBQ 11/24/19 06:30 12/23/19 06:29 11/25/19 06:13 Losartan Potassium (Cozaar) 50 mg EVERY 12 HOURS ORAL 11/24/19 09:00 12/23/19 20:59 11/25/19 09:41 Ondansetron HCl (Zofran) 4 mg Q4H PRN IVP Nausea & Vomiting 11/24/19 02:30 12/23/19 02:29 Pantoprazole (Protonix) 40 mg EVERY 12 HOURS ORAL 11/24/19 09:00 12/23/19 20:59 11/25/19 09:42 Tamsulosin HCl (Flomax) 0.4 mg BID ORAL 11/25/19 18:00 12/23/19 20:59 Zolpidem Tartrate (Ambien) 5 mg QHS PRN ORAL Insomnia 11/24/19 21:00 11/30/19 00:44 Allergies: Coded Allergies: No Known Allergies (Unverified , 02/24/18) Subjective awake, alert, responsive, No CP, No SOB, No N / V, feeling good Objective Last Vital Signs Date Time Temp Pulse Resp B/P (MAP) Pulse Ox O2 Delivery O2 Flow Rate FiO2 11/25/19 14:03 73 11/25/19 12: 4.0 11/25/19 09:42 159/95 11/25/19 08:47 Nasal Cannula 11/25/19 08:24 98 28 11/25/19 08:24 20 18 11/25/19 08:00 98.1 Laboratory Tests Test 11/25/19 06:33 Sodium Level 137 MMOL/L (136-145) Potassium Level 3.8 MMOL/L (3.5-5.1) Chloride Level 101 MMOL/L (98-107) Carbon Dioxide Level 33 MMOL/L (21-32) H Anion Gap 3 mmol/L (5-15) L Blood Urea Nitrogen 33 mg/dL (7-18) H Creatinine 2.3 MG/DL (0.55-1.30) H Estimat Glomerular Filtration Rate 35.8 mL/min (>60) Glucose Level 133 MG/DL (74-106) H Calcium Level 8.8 MG/DL (8.5-10.1) Intake and Output 11/24/19 11/25/19 19:00 07:00 Intake Total 1000 ml Output Total 2000 ml Balance -2000 ml 1000 ml Intake Oral 1000 ml Output Urine Total 2000 ml # Voids 4 Objective GENERAL: The patient is awake and responsive, in no acute distress on O2 oxygen via nasal cannula. HEAD AND NECK: Pupils are equal and reactive to light. Extraocular movements intact. Neck was supple. Positive JVD. LUNGS: Good air entry. minimal Expiratory wheezes, No rhonchi. Decreased air in bases. HEART: S1, S2. Distant heart sounds. No murmur or gallops. ABDOMEN: Soft, nondistended, and nontender. Morbidly obese. EXTREMITIES: +2 edema in bilateral lower extremities. NEUROLOGIC: Cranial nerves II through XII grossly intact. Motor is 5/5 in all extremities. Gait is intact. Assessment/Plan Assessment/Plan ASSESSMENT: 1. Acute congestive heart failure exacerbation on chronic with possible decreased ejection fraction. 2. Diabetes type 2. 3. Morbid obesity. 4. Chronic kidney disease. 5. Coronary artery disease. 6. Hypertension. 7. Seizure disorder. 8. Chronic obstructive pulmonary disease exacerbation. 9. Amphetamine abuse PLAN: 1. In Telemetry 2. Start Neb Tx. 3. On Lasix IV. 4. Monitor blood pressure closely. 5. Monitor blood glucose level closely. 6. Code status: Full Code. 7. DVT prophylaxis: heparin subcutaneous. 8. DC home today. Marquez Dawson MD Nov 25, 2019 15:28
[2019-11-25] MEDS ORDERED: Tamsulosin 0.4mg cap ORAL SCH (18:00)
[2019-11-25] MEDS ORDERED: Carvedilol 12.5mg tab ORAL SCH (21:00)
--- NOTE | 2019-11-26 09:37 | Discharge Summary ---
Discharge Summary Discharge Summary _ DATE OF ADMISSION: 11/22/2019 DATE OF DISCHARGE: 11/25/2019 DISCHARGED BY: Dr. Dawson REASON FOR ADMISSION: 59 years old male with past medical history of hypertension, COPD, diabetes mellitus type 2, asthma, dyslipidemia, congestive heart failure, seizure disorder, chronic smoker, presented to emergency department complaining of shortness of breath, worsening over the course of 5 days. Patient was taking Lasix , but stated that it was not working. He denied chest pain. Blood pressure was significantly elevated 202/134. Laboratory work-up revealed mild leukocytosis WBC 11.9, stable hemoglobin , hematocrit and platelet count. Stable electrolytes. BUN 35, creatinine 2.4 . Stable LFT . Glucose 208 . EKG revealed sinus tachycardia no acute ischemic changes. Troponin 0.001 , pro BNP 8280. Chest x-ray revealed evidence of pulmonary edema. Patient was placed on BiPAP due to respsirtaory disress. ABG still initially revealed hypoxia with O2 sat of 85% . urine toxicology screen was positive for amphetamine. Patient subsequently admitted to direct observational unit. CONSULTANTS: ironer hand Dr Gonzales HOSPITAL COURSE: Patient admitted to direct observational unit. Patient started on IV diuresis with Lasix. Volumes were closely monitored. Blood pressure was closely monitored and managed as per ironer hand. Blood sugar was managed with sliding scale of insulin. DVT prophylaxis provided. Echocardiogram demonstrated left ventricular ejection fraction of 50% with no evidence of wall motion abnormality to the extent visualized. Low normal systolic function. No evidence of pericardial effusion. No evidence of left ventricular hypertrophy. Right ventricular systolic pressure of 33. Serial troponin were negative. EKG revealed no acute ischemic changes. Patient was ruled out for acute myocardial infarction. TSH was within normal limits. Lipid panel revealed elevated total cholesterol 254 ,elevated LDL 157, triglycerides 139. Patient educated on low-fat low-cholesterol diet. Patient declined statin initiation at this time. Beta blockage provided along with diuresis . Blood pressure was managed with beta-margie, angiotensin receptor margie and Lasix. Patient was able to be weaned from the BiPAP . Supplemental oxygen provided and titrated to keep pulse oximetry above 92%. Bronchodilator therapy provided as needed. Patient was counseled on smoking cessation. Patient declined nicotine patch. Follow-up chest x-ray revealed some improvement in CHF. Prior to discharge Lasix was changed to oral route. Antihypertensive medication regimen was optimized as per ironer hand. Blood pressure controlled . Initial hypertensive urgency resolved. DVT and GI prophylaxis provided. Renal ultrasound revealed was negative. Seizure precautions maintained , no evidence of seizure activity while in the hospital. Renal failure possibly due to diabetic nephropathy . Renal parameters and electrolytes were closely monitored, electrolytes corrected as needed Patient was counseled on abstinence from illicit street drugs . Patient clinically stabilized and was ready for discharge home. FINAL DIAGNOSES: Acute on chronic congestive heart failure exacerbation Acute encephalopathy Acute renal failure on chronic kidney disease Acute respiratory distress due to CHF, requiring BiPAP -resolved Pulmonary edema Hypertension with initial hypertensive urgency Morbid obesity Substance abuse/amphetamine Seizure disorder Diabetes mellitus type 2 with diabetic nephropathy COPD DISCHARGE MEDICATIONS: See Medication Reconciliation list. DISCHARGE INSTRUCTIONS: Patient was discharged home I have been assigned to dictate discharge summary for this account. I was not involved in the patient's management. Maritza Dupont NP Nov 26, 2019 09:37
== END 2019-11-25 17:20 | disposition home or self-care (01) | DRG 194 ==
LOC: EDBD 19:54 → EMR 20:29 → 2W 21:00 → EDBEDREQ 21:29 → 2E 11-24 02:09
PROC: 5A09357 Assistance with Respiratory Ventilation, Less than 24 Consecutive Hours, Continuous Positive Airway Pressure (ICD-10-PCS; principal; 2019-11-22)
DX: I13.0 Hypertensive heart and chronic kidney disease with heart failure and stage 1 through stage 4 chronic kidney disease, or unspecified chronic kidney disease (principal); N18.9 Chronic kidney disease, unspecified; I50.9 Heart failure, unspecified; G93.40 Encephalopathy, unspecified; N17.9 Acute kidney failure, unspecified; R06.03 Acute respiratory distress; F17.200 Nicotine dependence, unspecified, uncomplicated; I25.10 Atherosclerotic heart disease of native coronary artery without angina pectoris; E66.01 Morbid (severe) obesity due to excess calories; R56.9 Unspecified convulsions; J44.1 Chronic obstructive pulmonary disease with (acute) exacerbation; E78.5 Hyperlipidemia, unspecified; I16.0 Hypertensive urgency; F15.10 Other stimulant abuse, uncomplicated; E11.22 Type 2 diabetes mellitus with diabetic chronic kidney disease; R09.02 Hypoxemia; Z68.41 Body mass index [BMI] 40.0-44.9, adult
CPT/HCPCS: 36415; 36600; 71045; 76770; 80048; 80053; 80061; 80307; 82803; 82962; 83036; 83690; 83735; 83880; 84100; 84443; 84484; 85025; 85610; 85730; 93306; 94640; 94660; 94664; 96374; 96375; 96376; 99291; J1815; J2405; J7620; J8499